=== PATIENT | male | born 1985 | race Hispanic/Latino ===

== ENCOUNTER 2017-01-07 14:13 | Inpatient (IN) | payer OTHER ==
[~2017-01-07] VITALS: Ht 188 cm; Wt 184.9 kg
[~2017-01-07 14:13] MED LIST: IBUP200C PO
[2017-01-07 14:30] VITALS: BP 157/104; PULSE 90; RESP 28; O2SAT 94
[2017-01-07] MEDS ORDERED: Albuterol 2.5 mg/3 mL Inhalation Solution NEB ONE (15:30)
[2017-01-07 15:42] VITALS: PULSE 97; RESP 22; O2SAT 95
--- NOTE | 2017-01-07 15:54 | ED.REPORT ---
HPI-Dyspnea / Wheezing Date of Service Jan 07, 2017 ED Provider: Gurinder Hoyt PA-C Evan is Serbian-speaking 31-year-old male who presents with a chief complaint of swollen neck glands. Review of records indicates that the patient was seen at [place] urgent [facility] 2 days ago for cold symptoms. At that time he complained of fatigue, fever, headache, nasal congestion, otalgia, postnasal drainage, sinus pressure and crusted eyelids in the morning. He complained as well as preauricular tenderness. he denied testicular or scrotal pain. He has been tested for mumps and results are pending. He was diagnosed with parotitis , aphthous ulcer of the mouth and acute conjunctivitis of both eyes. Since the emergency department because his preauricular pain is worsening. He also complains of these had to sleep in a chair for the last 2 nights because he becomes short of breath lying down and aggravates his pain. There is complaint of fever, chills, dizziness and headache. He also reports pain in his pannus when he coughs. Denies abdominal pain, vomiting, diarrhea, chest pain, palpitations. Admits smoking. Denies cocaine/methamphetamine, cardiac disease. Nursing Notes Stated Complaint: SWOLLEN NECK GLANDS Chief Complaint: Respiratory Complaints Nursing Notes Reviewed: Yes Allergies: Coded Allergies: No Known Allergies (Unverified , 01/07/17) Scheduled Lisinopril (Lisinopril) 20 Mg Tablet 20 MG PO DAILY Scheduled PRN Ibuprofen (Ibuprofen) 400 Mg Tablet 400 MG PO TIDWM PRN PRN For Pain General Time Seen by MD: 15:30 Chief Complaint Other (swollen neck glands) Past Medical History Past Medical History Reports: Hypertension, Denies: Asthma, Congestive heart failure, Coronary artery disease, Diabetes mellitus Past Surgical History knee surgery 04/22/2016 Smoking History Current Every Day Smoker, Light Tobacco Smoker Social History Alcohol Use: 1-3 per day Drug Use: Denies drug use Other Social History: Occupation lives with girfriend, works as a [employer] Ambulatory Status Independent Review of Systems General: Admits fever, chills, malaise. HEENT: Admits congestion, headache, sore throat. Respiratory: He admits dyspnea, cough, shortness of breath, wheezing. Cardiovascular: Denies chest pain, palpitations. Gastrointestinal: Denies vomiting, diarrhea, abdominal pain. Otherwise as noted in HPI. Physical Exam General: Mildly ill appearing, morbidly obese, mild distress. Head: Atraumatic, normocephalic. No mastoid tenderness. Eyes: Injected sclera. No discharge. PERRL. Vision grossly intact. Ears: Pinna and tragus nontender with manipulation. External auditory canal patent, atraumatic and without discharge. Tympanic membrane bonner, shiny and translucent without fluid, bulging, retraction or perforation. Hearing grossly intact. Nose: Symmetrical, nares patent without discharge. No frontal or maxillary sinus tenderness. Mouth/pharynx: Negative trismus normal dentition, mucus membranes moist. Tonsils 2+ and symmetrical, uvula midline. Pharynx injected, no cobblestoning or discharge. Voice clear. Neck: Tenderness and swelling around parotid glands and submandibular no lymphadenopathy or induration noted. Trachea midline. Respiratory: Regular rate and rhythm. Mild rhonchi in lower trivedi. No respiratory distress. Slightly increased work of breathing, speaks in complete sentences. Cardiovascular: Borderline tachycardia 100 bpm, regular rhythm, without murmur, gallop or rub. 1+ bilateral pedal edema noted.. Gastrointestinal: Obese abdomen non-tender without guarding or rebound. Bowel sounds normoactive. Extensive striae. Skin: Warm and dry. Neurological: Grossly nonfocal. Psychological: Alert and oriented. Speech appropriate, linear and logical. Behavior appropriate. Initial Vital Signs Vital Signs (First) Date Time Temp Pulse Resp B/P Pulse Ox O2 Delivery O2 Flow Rate FiO2 01/07/17 14:30 37.2 90 28 157/104 94 Room Air Initial VS: Reviewed, Vital signs normal Interpretation & Diagnostics Lab Results Interpretation Result Diagram: 01/07/17 1645 01/07/17 1645 Test 01/07/17 16:45 White Blood Count 10.6th/mm3 (3.8-10.1) Red Blood Count 5.27mil/mm3 (4.40-5.80) Hemoglobin 15.1g/dL (13.8-17.2) Hematocrit 46.8% (41.0-50.0) Mean Corpuscular Volume 88.8fL (81-100) Mean Corpuscular Hemoglobin 28.7pg (27.0-35.0) Mean Corpuscular Hemoglobin Concent 32.3% (32.0-37.0) Red Cell Distribution Width 15.1% (12.3-15.4) Platelet Count 252bil/L (150-400) Neutrophils (%) (Auto) 71.1% (40-74) Lymphocytes (%) (Auto) 14.8% (14-46) Monocytes (%) (Auto) 11.6% (4-12) Eosinophils (%) (Auto) 2.1% (0-5) Basophils (%) (Auto) 0.2% (0-3) Sodium Level 140mEq/L (134-144) Potassium Level 4.8mEq/L (3.5-5.2) Chloride Level 99mEq/L (97-108) Carbon Dioxide Level 25mmol/L (18-29) Blood Urea Nitrogen 6mg/dL (6-20) Creatinine 0.50mg/dL (0.76-1.27) Estimat Glomerular Filtration Rate 206mL/min (>59) Glucose Level 108mg/dL (60-99) Calcium Level 8.6mg/dL (8.5-10.1) Total Bilirubin 0.4mg/dL (0.0-1.2) Aspartate Amino Transf (AST/SGOT) 125U/L (0-50) Alanine Aminotransferase (ALT/SGPT) 86U/L (0-44) Alkaline Phosphatase 101U/L (25-150) Troponin T 0.020ug/L (0.0-0.011) Pro-B-Type Natriuretic Peptide 269.6pg/mL (0-86) Total Protein 7.9g/dL (6.4-8.4) Albumin 4.2g/dL (3.4-5.0) Hold Andino Top Tube Received (Received) ECG Interpretation ECG Interpretation: Sinus rhythm with a rate of 97, no axis deviation, left atrial enlargement. Slight ST elevation less than 1 box in aVR and depression in lead [address] Argueta. X-Ray Chest Interpretation Chest Xray Interpretation: PROCEDURE: X-RAY CHEST ONE VIEW, PORTABLE ([id number]) INDICATIONS: dyspnea IMPRESSION: Acute disease is seen in the Portable chest. Re-Eval/Medical Decision Med Decision/Clinical Course 31-year-old male diagnosed 3 days ago at urgent care with parotitis, conjunctivitis upper respiratory tract infection and concern for mumps presents for worsening symptoms in the emergency department. Complains of orthopnea, worsening parotid pain, worsening cough. Mumps test is pending. Triage nurse noted wheezing, and requested an albuterol nebulizer. this was administered prior to my seeing him though I did listen to his lungs before he received it. I heard wheezing as well as rhonchi before treatment, which is improved modestly after treatment. Patient reports improvement. Physical examination reveals a morbidly obese male with continued rhonchi, 1+ pitting edema which the patient states has been present since his knee surgery approximately one year ago, parotid tenderness. There is no induration in the submandibular region, tonsils are midline and symmetrical. There is no inspiratory stridor or drooling. He does appear to have slightly increased work of breathing. I ordered a CBC, CMP, BNP, and chest x-ray have concern of possible CHF development. These are unremarkable except for a very slightly elevated BNP. Subsequent EKG is abnormal and troponin is slightly elevated at 0.020. Dr. Argueta is concerned about viral myocarditis. I do not believe this is heart failure, STEMI, pneumonia, peritonsillar abscess, Daniel's angina or epiglottitis. I discussed the case with the hospitalist who accepts admission. Patient is amenable. Re-Evaluation/Progress : Time of Eval: 18:44 Re-Evaluation/Progress Note: Patient reports pain is significantly reduced. Slight rhonchi still present in all trivedi. Patient appears to be sitting comfortably and having a snack, though his breathing appears slightly labored. 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
[2017-01-07 17:02] LABS: BASOPHILS % (AUTO) 0.2 % (0-3); EOSINOPHILS % (AUTO) 2.1 % (0-5); MONOCYTES % (AUTO) 11.6 % (4-12); Mean Corpuscular Hemoglobin 28.7 pg (27.0-35.0); Mean Corpuscular Volume 88.8 fL (81-100); NEUTROPHILS % (AUTO) 71.1 % (40-74); Platelet Count 252 bil/L (150-400)
--- NOTE | 2017-01-07 17:28 | DRSVH ---
PROCEDURE: X-RAY CHEST ONE VIEW, PORTABLE ([id number]) INDICATIONS: dyspnea TECHNIQUE: One view of the chest was acquired. COMPARISON: [facility], CR, XR CHEST 2VW, 05/18/2016, 12:17. FINDINGS: Surgical changes and devices: None. Lungs and pleura: No pleural effusions or pneumothorax. Lungs are clear. Mediastinum: Mediastinal contours appear normal. Heart size is normal. Bones and chest wall: No suspicious bony lesions. Overlying soft tissues appear unremarkable. IMPRESSION: Acute disease is seen in the Portable chest. Dictated by: Bin Etienne M.D. on 01/07/2017 at 17:26 Approved by: Bin Etienne M.D. on 01/07/2017 at 17:27
[2017-01-07] MEDS ORDERED: Alum-Mag Hydrox-Simeth 30 mL Suspension PO PRN (21:00)
[2017-01-07] MEDS ORDERED: Polyethylene Glycol (PEG) 17 Gm Powder PO PRN (21:00)
[2017-01-07 21:35] VITALS: BP 195/107; PULSE 100; RESP 18; O2SAT 94
[2017-01-07] MEDS ORDERED: LISI-567 PO (21:37)
[2017-01-07] MEDS ORDERED: IBUP400T22 PO (21:37)
[2017-01-07 21:51] VITALS: BP 194/134; PULSE 104; RESP 25; O2SAT 95
[2017-01-07] MEDS ORDERED: hydrALAZINE 20 mg/mL Inj IV STA (23:28)
[2017-01-07] MEDS ORDERED: Furosemide 10 mg/mL 2 mL Inj IVPUSH ONE (23:30)
--- NOTE | 2017-01-07 23:38 | PCM.HPMED ---
Subjective Date of Service Jan 07, 2017 Primary Provider: Admitting Physician: Rachael aMres DO Primary Care Physician: [facility] Attending Physician: Rachael Mares DO Admit Status: From the Emergency Department Chief Complaint: Parotitis History of Present Illness: Patient is a pleasant 31-year-old gentleman history of hypertension presenting with the chief complaint of swollen neck glands and pain since Wednesday (3 days) additionally he has been having "cold symptoms" during this time. He was seen at the [place] urgent care 2 days ago with a head concern for mumps and swabs were taken and sent for analysis. He complains of fatigue, fever, headache, nasal congestion, otalgia, postnasal drip, sinus pressure, crusted eyelids this morning. He states the reason for coming into the ER was that his symptoms were continuing to get worse and more unbearable this morning. Additionally at the urgent care he was diagnosed with parotitis, this ulcer, and acute conjunctivitis of both eyes. He denies any recent travel, no tuberculosis contacts, no contact with anybody with similar symptoms, he has been having a cough, productive green and yellow for the last 3 days. He has bilateral lower extremity edema which he states there for a year, wax and wanes, and was only present after he suffered on-the- job injury requiring bilateral knee surgery. 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 He denies any chest pain, he does have some lightheadedness and dizziness that was worsening today, mild headache secondary to the pain in his parotids and sinus pressure, he denies any nasal drainage. No tinnitus. No nausea, vomiting, diarrhea. No numbness, tingling or weakness in his arms and her legs, however does endorse generally feeling weak. He describes having shortness of breath when laying down, as well as pain in his abdomen with cough. He has been taking Tylenol at home for pain relief which has not been helping. On presentation had a heart rate of 90, respiratory rate of 28, blood pressure 157/104. Temperature 37.2. White blood cells 10.6, remaining CBC unremarkable with normal differential Electrolytes normal, creatinine 0.5, BUN 6, glucose 108, AST and ALT 125 and 86 respectively, proBNP 269.6, troponin 0.02, lactic acid 1.6. EKG: Heart rate 97, sinus rhythm, normal axis, left atrial enlargement. Portable chest x-ray describes clear lungs, normal heart size. I question if there is a typo in the radiologist's impression "acute disease is seen in the portable chest." In the emergency department he received nebulizer treatments which improved his respiratory distress. Review of Systems: Comprehensive ROS negative unless stated in history of present illness Allergies Coded Allergies: No Known Allergies (Unverified , 01/07/17) Home Medications Lisinopril 20 mg daily by mouth PMH Hypertension Obesity Lower extremity edema Surgical History Bilateral knee repair March 2016 Family History Father is alive and well Mother is , unknown cause of Social History Occupation: [employer] Hx Alcohol Use: Yes Alcoholic Drinks Per Day: 4 beers per day Hx Substance Use: No Smoking Status: Current Every Day Smoker (4 cigarettes a day), Light Tobacco Smoker Living Arrangement: with Family Exam Vital Signs Vital Sign - Last Date Time Temp Pulse Resp B/P Pulse Ox O2 Delivery O2 Flow Rate FiO2 01/07/17 21:51 37.7 104 25 194/134 95 Room Air Exam General: Sitting at edge of bed, labored breathing, moderately uncomfortable. HEENT: Head is round and appears swollen. Eyes are red, conjunctiva pink, mucous membranes moist, bilateral TM are pearly white without air-fluid level or irritation. Tenderness over the parotid glands bilaterally, nontender maxillary, frontal, ethmoid sinuses. No pain around orbit. Extraocular muscles are intact. Ears no nystagmus. Tongue is midline, tonsils mildly enlarged, airways patent. Left middle turbinate is moderately to severely inflamed, naris are uniformly erythematous with white discharge. Transillumination negative. Hyperpigmentation of skin fold at base of neck. Cardiovascular: Regular rate and rhythm, no clicks murmurs rubs, peripheral pulses 2/4 equal bilaterally or JVD appreciated Pulmonary: Lung sounds are distant, unable to appreciate rales, rhonchi or wheezing. -Examined after breathing treatment Abdominal: Soft to palpation, bowel sounds present 4, no hepatosplenomegaly. Negative rebound. Extremities: Moderate to severe fear bilateral lower extremity edema up to the level of the knee, mild tenderness, no rashes redness or asymmetries. Neuro: Neurologically grossly intact, strength is equal bilaterally upper and lower extremities. MSK: Gait is normal, able to move extremities on their own volition, strength 5 out of 5 equal bilaterally to upper and lower extremities. Lab and Diagnostics Result Diagram: 01/07/17 1645 01/07/17 1645 X-Rays, CTs and MRIs See history of present illness 12-lead ECG The history of present illness Assessment & Plan 31-year-old gentleman with a 3 day worsening cough, congestion, and parotid gland pain, found to have elevated troponin, and previously concern for Mumps, currently stable, chief concern for viral myocarditis. #1 Acute Sepsis, present on admission, evaluation and treatment ongoing Patient has consistently elevated heart rate, greater than 90, respiratory rate consistently greater than 20. Presumed source to be upper respiratory tract. Chest x-ray unremarkable Lactic acid 1.6 Treatment as below #2 acutely Elevated troponin, present on admission, evaluation treatment ongoing Ruling out NSTEMI, concern for viral myocarditis, demand ischemia secondary to sepsis and tachycardia. EKG does not demonstrate any acute infarction or ischemia. JAVED score of 5 Base on telemetry Trend troponins Tight blood pressure control, as below Aspirin now If troponins remain elevated, will begin anticoagulation therapy with heparin, and continue antiplatelet. If echocardiogram is abnormal or suggestive of viral myocarditis cardiac MRI may be of additional diagnostic value. Cardiology consultation #3 Acute Parotitis, worsening, present on admission Concern is for mumps Place patient in contact and droplet precautions Await results from outpatient laboratory testing Pain relief oxycodone as needed.-Avoid acetaminophen due to elevated liver enzymes of unknown cause #4 Acute on chronic worsening Bilateral lower extremity edema, present on admission, evaluation and treatment ongoing Described orthopnea, shortness of breath, waxing and waning course, concern is for CHF, possibly secondary to [place], viral myocarditis as mentioned above. Echocardiogram to be performed Trial of 20 mg Lasix IV Keep legs elevated, #5 Acute Elevated liver enzymes, present on admission, AST 125, ALT 86. Patient stated he took Tylenol to help with pain that did not help. Consumes 4 drinks a day for several years. Hepatitis panel Abdominal pain at this time to suggest intrahepatic or biliary cause. No jaundice. Bilirubin 0.4 We will follow on CMP in the a.m. #6 Acute hypertensive urgency, present on admission, treatment initiated 157/104 presentation, elevated to 194/134 when was mentioned before, 205 systolic on last check. Given lower extremity edema, shortness of breath, troponin, concern for CHF IV Lasix 20 mg 5 mg hydroxyzine IV If he has benefited from diuresis, will continue to diurese. Continue home lisinopril 20 mg, consider increasing to 40 mg #7 Chronic worsening Morbid obesity, present on admission, treatment ongoing BMI 52.4 Hemoglobin A1c, lipid panel, TSH, Nutrition consult in house Pain Evaluation: Adequate Pain Control GI Prophylaxis: Not indicated VTE Prophylaxis: Sub-Q Heparin (Unfractionated) Resuscitation Status: CPR: Attempt Resuscitation Attending Statement The patient was seen and examined together with house staff on 01/08/2017 and I agree with the history, exam and plan as outlined in the note above. Declan Lui DO Jan 07, 2017 23:38 Rachael Mares DO Jan 08, 2017 03:23
[2017-01-08] VITALS (9 sets, daily range): BP systolic 140–165; BP diastolic 75–105; PULSE 74–97; RESP 18–23; O2SAT 91–97
[2017-01-08] MEDS: Heparin 5,000 Unit/mL Inj SUBQ SCH ×3 (00:12→17:24)
[2017-01-08] MEDS: Sodium Chloride LOK Flush 10 mL Syringe IVFLUSH SCH ×3 (00:40→15:30)
[2017-01-08 05:23] LABS: BASOPHILS % (AUTO) 0.2 % (0-3); EOSINOPHILS % (AUTO) 3.5 % (0-5); MONOCYTES % (AUTO) 8.9 % (4-12); Mean Corpuscular Hemoglobin 28.6 pg (27.0-35.0); Mean Corpuscular Volume 90.3 fL (81-100); NEUTROPHILS % (AUTO) 72.2 % (40-74); Platelet Count 228 bil/L (150-400)
[2017-01-08 05:59] LABS: TROPONIN T 0.023 ug/L (0.0-0.011)
--- NOTE | 2017-01-08 06:41 | NUR ---
Admit/GERI Pt arrived to [facility] RM 2018 @ 2230. Pt arrived from ED and was able to walk from gurney to bed with strong gait noted. Pt A&Ox3, Hypertensive (MD notified and orders given for 5mg hydralazine and 20mg Lasix), with SpO2 mid to high 90's. Pt placed on Telemetry, and SpO2 monitoring. Pt advised of hospital policies and procedures and orient to call light and room. Pt unhappy with blood draws as he is scared of needles, educated pt on the importance of blood draws and pt agreed to having them done. Pt found to have severe sleep apnea. RT notified and helped to educate pt on having apnea and discussed trial of CPAP machine with pt. Pt was found to have SpO2's in the 60's while sleeping with irregular heart rate. Pt was placed on 4L NC and continued to Desat. Pt then placed on 8L Oxymask and continued to desat into the 60's. Pt placed on CPAP 3x for short periods of 2-10 mins at the lowest setting and pt unable to tolerate the pressure stating " I feel like I am going to with that machine on! My head feels like it is going to explode!" Educated pt on the importance of the machine and pt still refused. Tele has been SR/T 70's to 110's.
--- NOTE | 2017-01-08 10:24 | PCM.PNMED ---
Subjective Date of Service Jan 08, 2017 Subjective Patient feels fatigued. He denies any chest pain. Does have a cough and some sore throat. Minimal rhinorrhea. A fair amount of pain around his glans at the jawline on both sides. He is fairly prominent parotid swelling. He also has some eye symptoms but no visual changes. No edema or orthopnea. Exam Vital Signs Vital Sign - Last Date Time Temp Pulse Resp B/P Pulse Ox O2 Delivery O2 Flow Rate FiO2 01/08/17 07:56 36.8 97 22 164/105 92 Room Air 01/08/17 04:00 8.00 01/08/17 03:13 30 Intake and Output 01/07/17 01/07/17 01/08/17 Cumulative From/Thru 15:00 23:00 07:00 01/07/17 14:30 - 01/08/17 05:08 Intake Total 1200 ml 1200 ml Output Total 1700 ml 1700 ml Balance -500 ml -500 ml Intake Oral 1200 ml 1200 ml Output Urine Total 1700 ml 1700 ml # Bowel Movements 0 0 Exam Morbidly obese. No distress, slightly muffled voice. Some evidence of conjunctivitis, bilateral both were read and injected sclera Oropharynx is unremarkable. Patient has swollen parotid glands bilaterally Neck is otherwise supple. Lungs are clear with normal effort. Heart is regular without murmur Abdomen is nontender. Extremities are free of edema. Skin is free of rash or lesions. IVs and Medications Medications Reviewed: Medications were reviewed in detail Lab and Diagnostics Result Diagram: 01/08/17 0450 01/08/17 0450 X-Rays, CTs and MRIs See history of present illness 12-lead ECG The history of present illness Assessment & Plan 31-year-old gentleman with a 3 day worsening cough, congestion, and parotid gland pain, found to have elevated troponin, and previously concern for Mumps, currently stable, chief concern for viral myocarditis. #1 Acute Sepsis, present on admission, evaluation and treatment ongoing Patient has consistently elevated heart rate, greater than 90, respiratory rate consistently greater than 20. Presumed source to be upper respiratory tract. Chest x-ray unremarkable Lactic acid 1.6 Treatment as below Will add a adult respiratory PCR as well as a month's immunoglobulin, IgM. #2 acutely Elevated troponin, present on admission, evaluation treatment ongoing Ruling out NSTEMI, concern for viral myocarditis, demand ischemia secondary to sepsis and tachycardia. EKG does not demonstrate any acute infarction or ischemia. JAVED score of 5 Base on telemetry Trend troponins Tight blood pressure control, as below Aspirin now If troponins remain elevated, will begin anticoagulation therapy with heparin, and continue antiplatelet. If echocardiogram is abnormal or suggestive of viral myocarditis cardiac MRI may be of additional diagnostic value. We will defer to cardiology consultation and trend troponins as well as obtain results of PCR studies and echocardiogram. #3 Acute Parotitis, worsening, present on admission Concern is for mumps Place patient in contact and droplet precautions Await results from outpatient laboratory testing Pain relief oxycodone as needed.-Avoid acetaminophen due to elevated liver enzymes of unknown cause Plan is as above. #4 Acute on chronic worsening Bilateral lower extremity edema, present on admission, evaluation and treatment ongoing Described orthopnea, shortness of breath, waxing and waning course, concern is for CHF, possibly secondary to [place], viral myocarditis as mentioned above. Echocardiogram to be performed Trial of 20 mg Lasix IV Keep legs elevated, Continue diuresis with Lasix 20 IV daily. #5 Acute Elevated liver enzymes, present on admission, AST 125, ALT 86. Patient stated he took Tylenol to help with pain that did not help. Consumes 4 drinks a day for several years. Hepatitis panel Abdominal pain at this time to suggest intrahepatic or biliary cause. No jaundice. Bilirubin 0.4 We will follow on CMP in the a.m. We will follow clinically. #6 Acute hypertensive urgency, present on admission, treatment initiated 157/104 presentation, elevated to 194/134 when was mentioned before, 205 systolic on last check. Given lower extremity edema, shortness of breath, troponin, concern for CHF IV Lasix 20 mg 5 mg hydroxyzine IV If he has benefited from diuresis, will continue to diurese. Continue home lisinopril 20 mg, consider increasing to 40 mg We will add hydrochlorothiazide to lisinopril at 20 mg. The patient appears to be a candidate for dual antihypertensive therapy. #7 Chronic worsening Morbid obesity, present on admission, treatment ongoing BMI 52.4 Hemoglobin A1c, lipid panel, TSH, Nutrition consult in house Pain Evaluation: Adequate Pain Control GI Prophylaxis: Not indicated VTE Prophylaxis: Sub-Q Heparin (Unfractionated) Resuscitation Status: CPR: Attempt Resuscitation Time spent 30 minutes Dariusz Nguyen MD Jan 08, 2017 10:24
--- NOTE | 2017-01-08 13:57 | DRSVH ---
[facility] [address] [place] [address] Echocardiogram Report Name: PENNY RAE Study Date: 01/08/2017 Height: 74 in Hospital Exam Location: [facility] Weight: 408 lb Gender: Male BSA: 2.9 m2 : 1985 Age: 31 yrs BP: 152/77 mmHg Reason For Study: Congestive Heart Failure Ordering Physician: Performed By: [facility] HOSPITALIST [facility] Interpretation Summary The study quality was technically difficult. The left ventricle is grossly normal size. There is moderate concentric left ventricular hypertrophy. The ejection fraction is estimated to be 60-65%. The right ventricle is moderately dilated. Right ventricular systolic function is moderately reduced. There is trace tricuspid regurgitation. Right ventricular systolic pressure is estimated to be 41 mmHg plus the clinically estimated CVP which cannot be estimated on this exam. The ascending aorta is mildly enlarged. Procedure: A two-dimensional transthoracic echocardiogram with color flow and Doppler was performed. The study quality was technically difficult. A contrast injection of Definity was performed to improve assessment of LV function. There is no prior echocardiogram noted for this patient. The heart rate ranged between 78-104 bpm during the study. Left Ventricle: The left ventricle is grossly normal size. There is moderate concentric left ventricular hypertrophy. The ejection fraction is estimated to be 60-65%. Regional wall motion abnormalities cannot be excluded due to limited visualization. The E/E'is normal. Right Ventricle: The right ventricle is moderately dilated. Right ventricular systolic function is moderately reduced. Atria: The left atrium is borderline dilated. The right atrium is borderline dilated. A prominent eustachian valve is noted. Mitral Valve: There is mild mitral annular calcification. There is no mitral regurgitation. Aortic Valve: The aortic valve opens well. The aortic valve is not well visualized. There is no aortic valve stenosis. No aortic regurgitation is present. Tricuspid Valve: There is trace tricuspid regurgitation. Right ventricular systolic pressure is estimated to be 41 mmHg plus the clinically estimated CVP which cannot be estimated on this exam. Pulmonic Valve: The pulmonic valve is not well visualized. Great Vessels: The aortic root is normal size. The ascending aorta is mildly enlarged. The inferior vena cava was not well visualized. Pericardium/ Pleura There is no pericardial effusion. There is no pleural effusion. MMode/2D Measurements & Calculations LVIDd: 5.0 cm LA dimension: 4.3 cm RA long axis Ao root diam LVIDs: 4.2 cm FS: 14.6 % LA A2 area: 24.7 cm RA area Aortic Jxn: 3.0 cm IVSd: 1.5 cm LA A4 area: 28.6 cm asc Aorta Diam LVPWd: 1.3 cm LA length (vol) : 28.4 cm RA vol Ao Arch Diam (Prox LA vol: 89.5 ml : 114.ml Trans): 3.0 cm LA vol index RA : 38.8 mm/ : 30.4 ml/m2 RVDd major : 8.0 cm LV main. diameter/BSA LV sys. diameter/BSA RVD1 (basal) RVD2 (mid): 5.3 cm (cm/m^2): 1.7 (cm/m^2): 1.4 Doppler Measurements & Calculations Ao V2 max MV P1/2t TR max nolan MV V2 mean : 173.1 cm/sec : 56.3 msec : 319.4 cm/sec : 70.6 cm/sec Ao max P.0 mmHg TR max PG MV mean PG Ao mean P.3 mmHg : 40.8 mmHg PA V2 max MV V2 VTI : 130.2 cm/sec : 22.7 cm PA mean PG PA Accel Time MV P1/2t max nolan Ao V2 mean PA V2 mean : 129.6 cm/sec : 84.1 cm/sec MVA(P1/2t): 3.9 cm2 Ao V2 VTI: 32.7 cm Reading Physician:CYRIL
--- NOTE | 2017-01-08 14:22 | NUR ---
NUTRITION ASSESSMENT Assess: 31 yo M w/ sepsis, elevated troponin, acute parotitis, bilateral lower extremity. Consult received for weight loss. Pt has had a 100 lbs wt gain over the last year and has been somewhat immobile d/t a work injury. Pt states that he has tried everything diet shin and it doesn't work. He would like to have bariatric surgery. He typically eats 1-2 meals per day. Pt did not seem interested in discussing diet, not making eye contact and looking at his phone multiple times throughout conversation. PMHx: HTN, Obesity, Lower extremity edema LABS: Cr 0.65, Glu 113, AST 97, ALT 63 MEDICATIONS: Reviewed DIET: Heart Healthy, PO 100% NUTRITION FOCUSED PHYSICAL ASSESSMENT: GI symptoms/stool: No BM recordedBraden: 22 Skin integrity: No issues noted Overall Appearance: Obese man sitting at the edge of his bed ANTHROPOMETRICS: Current Wt: 185.1 kg BMI: 52.4 kg/u2Oqfmz Wt: 185.1 kg IBW: 86.4 kgAdj BW: 111 kg Recent wt changes: 100 lbs wt gain x1 yr ESTIMATED NEEDS: BMI/Wt loss Calories: 4297-7623 kcal/d (25-30 kcal/kg/d Adj BW (-500)) Protein: 135-165 g/d (1.2-1.5 g/kg/d Adj BW) NUTRITION DIAGNOSIS: 1) Food-knowledge related deficit related to weight loss as evidenced by reported knowledge. INTERVENTION: 1) Educated pt on the impact of diet vs exercise on wt loss. Informed pt that most of weight loss is achieved through dietary changes. 2) Discussed bariatric surgery and that most surgeons typically require some wt loss and dietary changes prior to the procedure. 3) Encouraged pt to eat at least 3 meals per day but that eating every 2-4 hours was most ideal and that every meal has a lean source of protein. 4) Recommend pt keep a food journal to identify various food patterns or habits MONITOR/EVALUATE: Wt, PO intake, Labs, Nutrition status, POC. Will follow per moderate nutrition risk guidelines.
--- NOTE | 2017-01-08 15:34 | NUR ---
Lab update Called urgent clinic to get Mumps lab back, talked to KAYLEE So whom does the PAQ's for the MD's inbox. He states that the results would not be available for 5-7 days. He states that the patient had this test done 01/05 so we should not expect to see results until Wednesday or Wednesday, he put a note in the chart to fax the results to [facility] when he gets them.
--- NOTE | 2017-01-08 16:30 | NUR ---
Social Work: Screen D: Per EMR review, pt is a 31 year old male admitted for Elevated Troponin. Pt is [employer] insurance with no supplement. PCP Is through the [facility]. NOK is Dory Lopes. Advanced directives not completed- information provided to pt by [facility]. Readmit score not entered at this time. Pt lives in [place] in a mobile home with his family. He is I at baseline. Pt reports drinking 4 beers daily. Pt not currently on CIWA. [facility] met with pt at bedside to discuss possible CDP referral. Pt declined at this time and states his drinking is not problematic. CD assessment not completed with pt. A: Pt who is I at baseline. P: Anticipate pt to discharge home via POV once medically stable; [facility] to continue to follow. RENÉ Mcqueen
[2017-01-09] VITALS (11 sets, daily range): BP systolic 134–161; BP diastolic 73–92; PULSE 87–103; RESP 18–24; O2SAT 93–99
[2017-01-09] MEDS: Heparin 5,000 Unit/mL Inj SUBQ SCH ×3 (00:50→17:50)
[2017-01-09] MEDS: Sodium Chloride LOK Flush 10 mL Syringe IVFLUSH SCH ×3 (00:50→17:50)
[2017-01-09 02:08] LABS: Hepatitis A Antibody IgM Negative (Negative); Hepatitis B Core Antibody IgM Negative (Negative)
[2017-01-09] MEDS: Ondansetron 2 mg/mL 2 mL Inj IVPUSH PRN ×3 (05:46→23:00)
--- NOTE | 2017-01-09 06:15 | NUR ---
NOC PT has become increasingly anxious over night. HE is currently on 4l oxymask. HIs saturation decreases when he is sleeping, but comes right back up when he is awakened. HE refuses to wear a cpap, which is what he really needs. PT b/p has been hypertensive overnight, but not above normal prn hydralazine orders. HE is at times diaphoretic. THis am he was nauseous and was given zofran. Mild tremors are felt fingertip to fingertip. PT states that he drinks several beers everyday. HE keeps asking when he can go home. Hep panels came back negative and buccal swab neg. for mumps. We are still waiting for serology results. PT also c/o h/a this am. His CIWA is 12 currently. Oxycodone given twice for pain. Primary source is parotid. Will CTM and defer to day RN to continue monitoring.
--- NOTE | 2017-01-09 07:54 | PCM.PNMED ---
Subjective Date of Service Jan 09, 2017 Subjective He still has parotid gland swelling and fatigue. No fevers. Minimal pain. He has a cough, nonproductive. Some dyspnea and persistent hypoxia. His room air sats remaining 88-90 daily pending now much he is ventilating. No nausea or diarrhea. No skin rash. Exam Vital Signs Vital Sign - Last Date Time Temp Pulse Resp B/P Pulse Ox O2 Delivery O2 Flow Rate FiO2 01/09/17 06:10 87 22 150/92 93 OxyMask 3.00 01/09/17 02:55 36.9 95 Intake and Output 01/08/17 01/08/17 01/09/17 Cumulative From/Thru 15:00 23:00 07:00 01/07/17 14:30 - 01/09/17 06:40 Intake Total 1883 ml 3083 ml Output Total 2700 ml 1 ml 4401 ml Balance -817 ml -1 ml -1318 ml Intake Oral 1883 ml 3083 ml Output Urine Total 2700 ml 4400 ml Urine/Stool Mix 1 ml 1 ml # Voids 2 2 # Bowel Movements 1 1 Exam Alert and oriented 3, no distress. Fluent speech Anicteric sclera Swollen parotid glands Neck is otherwise supple. Lungs are clear with minimal wheezing. Heart is regular without murmur gallop or rub. Abdomen is distended but nontender. Extremities 1+ edema bilaterally which is chronic. Skin is free of rash or lesions IVs and Medications Medications Reviewed: Medications were reviewed in detail Lab and Diagnostics Result Diagram: 01/08/17 0450 01/08/17 0450 X-Rays, CTs and MRIs See history of present illness 12-lead ECG The history of present illness Assessment & Plan 31-year-old gentleman with a 3 day worsening cough, congestion, and parotid gland pain, found to have elevated troponin, and previously concern for Mumps, currently stable, chief concern for viral myocarditis. #1 Acute Sepsis, present on admission, evaluation and treatment ongoing Patient has consistently elevated heart rate, greater than 90, respiratory rate consistently greater than 20. Presumed source to be upper respiratory tract. Chest x-ray unremarkable Lactic acid 1.6 Treatment as below Will add a adult respiratory PCR as well as a month's immunoglobulin, IgM. We will continue fluid resuscitation no other changes. We have a negative hepatitis C and negative blood cultures. Negative adult respiratory PCR panel. #2 acutely Elevated troponin, present on admission, evaluation treatment ongoing Ruling out NSTEMI, concern for viral myocarditis, demand ischemia secondary to sepsis and tachycardia. EKG does not demonstrate any acute infarction or ischemia. JAVED score of 5 Base on telemetry Trend troponins Tight blood pressure control, as below Aspirin now We will repeat troponin today to see if this is trending down. ECG and echo are unremarkable. The possibility of viral myocarditis remains. #3 Acute Parotitis, worsening, present on admission Concern is for mumps Place patient in contact and droplet precautions Await results from outpatient laboratory testing Pain relief oxycodone as needed.-Avoid acetaminophen due to elevated liver enzymes of unknown cause Plan is as above. #4 Acute on chronic worsening Bilateral lower extremity edema, present on admission, evaluation and treatment ongoing Described orthopnea, shortness of breath, waxing and waning course, concern is for CHF, possibly secondary to NV, viral myocarditis as mentioned above. Echocardiogram to be performed Trial of 20 mg Lasix IV Keep legs elevated, Continue diuresis with Lasix 20 IV daily. #5 Acute Elevated liver enzymes, present on admission, AST 125, ALT 86. Patient stated he took Tylenol to help with pain that did not help. Consumes 4 drinks a day for several years. Hepatitis panel Abdominal pain at this time to suggest intrahepatic or biliary cause. No jaundice. Bilirubin 0.4 We will follow on CMP in the a.m. We will follow clinically. #6 Acute hypertensive urgency, present on admission, treatment initiated 157/104 presentation, elevated to 194/134 when was mentioned before, 205 systolic on last check. Given lower extremity edema, shortness of breath, troponin, concern for CHF IV Lasix 20 mg 5 mg hydroxyzine IV If he has benefited from diuresis, will continue to diurese. Continue home lisinopril 20 mg, consider increasing to 40 mg We will add hydrochlorothiazide to lisinopril will increase from 20 to 40. The patient appears to be a candidate for dual antihypertensive therapy. #7 Chronic worsening Morbid obesity, present on admission, treatment ongoing BMI 52.4 Hemoglobin A1c, lipid panel, TSH, Nutrition consult in house 8. Hypoxia. The patient may have mild reactive airways. He does smoke a couple cigarettes a day. His physical exam reveals minimal evidence of obstructive airways. The chest x-ray. Pain Evaluation: Adequate Pain Control GI Prophylaxis: Not indicated VTE Prophylaxis: Sub-Q Heparin (Unfractionated) Resuscitation Status: CPR: Attempt Resuscitation Time spent 30 minutes Dariusz Nguyen MD Jan 09, 2017 07:54
--- NOTE | 2017-01-09 09:39 | DRSVH ---
PROCEDURE: X-RAY CHEST ONE VIEW, PORTABLE ([id number]) INDICATIONS: dyspnea TECHNIQUE: One view of the chest was acquired. COMPARISON: [facility], CR, XR CHEST 1VW (PORTABLE), 01/07/2017, 16:53. FINDINGS: Surgical changes and devices: None. Lungs and pleura: No pleural effusions or pneumothorax. Lungs are clear. Mediastinum: Mediastinal contours appear normal. Heart size is normal. Bones and chest wall: No suspicious bony lesions. Overlying soft tissues appear unremarkable. IMPRESSION: No acute cardiopulmonary disease process. Dictated by: Danika Lancaster MD, PhD on 01/09/2017 at 9:36 Approved by: Danika Lancaster MD, PhD on 01/09/2017 at 9:37
[2017-01-09] MEDS ORDERED: Furosemide 10 mg/mL 4 mL Inj IVPUSH ONE (16:45)
--- NOTE | 2017-01-09 18:43 | NUR ---
SPO2/Nausea Cardiac: Pt denies CP, reports chronic edema since accident 2 years ago injuring both knees, Tele: SR 90-110. Resp: Pt reports mild SOB at times . SPo2 fluctuates greatly when pt sleeps 70s-90s. Pt has periods of apnea. Oxymask turned up to 10L when pt sleeping. Pt is very somnolent this AM after getting oxycodone for headache this AM. SPO2 mid to low 90s on 4L NC when awake. Pt desats when awake to upper 70s without mask. GI/: Pt reported some nausea late AM after breakfast. pt got up to EOB to use urinal and got very dizzy then vomited 500ml, Zofran given, no reports of nausea for rest of shift. indpendent to BR Neuro: A&Ox3, pt is anxious about cost of care and test results. 0.5mg ativan given this afternoon with good effect.
--- NOTE | 2017-01-09 23:54 | NUR ---
GERI/CPAP Refusal Pt having significant sleep apnea w/ SpO2 fluctuating down to 70s-90s while asleep. monitored continuously. Pt encouraged to try CPAP again but refuses, states he feels "like my head will explode, like the air goes in but does not come out." Risks of GERI explained. Pt also given GERI information in Urdu. Pt continues to refuse attempt to use CPAP. While awake SpO2 mid 90s on 8L oxymask. O2 turned up to 15L while pt sleeps to maximize oxygenation. No c/o chest pain. Addendum: 01/10/17 at 0136 by RAIZA PINEDA RN Pt still noted to desat to high 70s-80s while asleep, when woken sats come back up to normal limits. Pt informed that nursing will wake him if sats sustain below normal limits, pt voiced understanding. aware.
[2017-01-10] VITALS (7 sets, daily range): BP systolic 136–160; BP diastolic 80–104; PULSE 88–114; RESP 19–24; O2SAT 87–98
[2017-01-10] MEDS: Heparin 5,000 Unit/mL Inj SUBQ SCH ×2 (01:10→08:49)
[2017-01-10] MEDS: Sodium Chloride LOK Flush 10 mL Syringe IVFLUSH SCH ×2 (01:10→08:50)
--- NOTE | 2017-01-10 06:33 | NUR ---
Respiratory/Pain/Nausea Pt titrated down from 10L to 8L oxymask at start of shift and maintained sats in mid 90s. Once pt fell asleep he desat consistently down to 70s and occasionally high 60s, please see previous note. Pt turned up to 15L oxymask and remained there as he intermittently slept throughout the shift. Sats 97-100 if pt awake at this O2 flow. This morning pt woke for sometime and O2 was turned back down to 10L oxymask, sats 93-95. Pt also given oxycodone x1 for 04/03 headache at start of shift. Pt stated this was effective, however began to vomit less than an hour later. Pt stated this medication had this effect on him before. Pt given Zofran x1, he vomited once more but denied any further nausea. Addendum: 01/10/17 at 0712 by RAIZA PINEDA RN Pt occasionally pulls oxymask off in his sleep and noted to desat very quickly into 70s. Pt hardwired for SPo2 monitoring continuously.
[2017-01-10] MEDS: Ondansetron 2 mg/mL 2 mL Inj IVPUSH PRN ×2 (10:08→13:37)
--- NOTE | 2017-01-10 13:44 | DRSVH ---
PROCEDURE: CT ANGIO CHEST PULMONARY EMBOLISM ([id number]) INDICATIONS: 31-year-old male with dyspnea. TECHNIQUE: After the administration of intravenous contrast, 2 mm thick sections acquired from the pulmonary api stephanie to the posterior costophrenic angles. 3-dimensional maximum intensity projection (MIP) coronal a nd sagittal reformats were then acquired through the thorax. For radiation dose reduction, the follo wing was used: automated exposure control, adjustment of mA and/or kV according to patient size. COMPARISON: [facility], CR, XR CHEST 1VW (PORTABLE[facility]09[facility]2017[facility] 9:04[facility]ST [facility], 05/20/2016, 16:48. FINDINGS: Image quality: Excellent. Pulmonary arteries: Pulmonary arteries are normal in size, and demonstrate no intraluminal filling d efects to suggest central pulmonary embolism. Lungs and pleura: Lungs are clear. No pleural effusions or pneumothorax. Central and peripheral ai rways are patent. Mediastinum: Heart size is normal, without pericardial effusion. No mediastinal or hilar adenopathy . Thoracic aorta is normal in caliber and enhancement. Esophagus is normal in caliber, without hiat al hernia. Bones and chest wall: No suspicious bony lesions. Ribs and thoracic spine appear intact throughout. Thyroid gland is normal. No axillary or supraclavicular adenopathy. Abdomen: Visualized upper abdominal solid organs appear normal in the early arterial phase of enhanc ement. Diffuse hepatic fatty infiltration. IMPRESSION: 1. No evidence of acute central pulmonary embolism. 2. Clear lungs. 3. Hepatic steatosis. Dictated by: Zbigniew Jimenez M.D. on 01/10/2017 at 13:39 Approved by: Zbigniew Jimenez M.D. on 01/10/2017 at 13:42
--- NOTE | 2017-01-10 15:07 | NUR ---
Home Oxygen Eval Room air at rest 87% 2L oxy mask w/activity 81% 6L oxy mask w/activity 91%
--- NOTE | 2017-01-10 15:49 | PCM.DIMED ---
Discharge Instructions Date of Service Jan 10, 2017 Dates of Hospitalization Jan 07, 2017 at 20:48 Discharge Diagnosis Discharge Diagnosis 1. Acute Sepsis, Improved. 2. Metapneumovirus pneumonia , improved 3. Acute respiratory failure with hypoxia, slowly improving. 4. Probable obstructive sleep apnea, not improving. 5. Acute Elevated liver enzymes, improving 6. Hypertension, uncontrolled. Improved. 7. Morbid obesity, BMI 52.4 Diet Low fat, Low Sodium, Heart Healthy Activity Limited until seen by PCP Call your provider Fever or Chills, Shortness of breath, Chest pain Patient Instructions Patient is asked to make an appointment [facility] to see his doctor within the next week. Follow-up Provider: Melba Trujillo MD Follow-up with PCP in: 1 week Dariusz Nguyen MD Jan 10, 2017 15:49
[2017-01-10] MEDS ORDERED: ONDA4VIA27 IVPUSH (15:52)
[2017-01-10] MEDS ORDERED: HYDR25TA4 PO (15:52)
[2017-01-10] MEDS ORDERED: LISI-567 PO (15:52)
--- NOTE | 2017-01-10 15:59 | PCM.DC.MED ---
Discharge Summary Date of Service Jan 10, 2017 Dates of Hospitalization Date of Hospital Admission Jan 07, 2017 at 20:48 Date of Discharge: Jan 10, 2017 Providers: Admitting Physician: Rachael Mares DO Primary Care Physician: [facility] Attending Physician: Rachael Mares DO Diagnosis at Time of Discharge Diagnosis at Time of Discharge 1. Acute Sepsis, Improved. 2. Metapneumovirus pneumonia , improved 3. Acute respiratory failure with hypoxia, slowly improving. 4. Probable obstructive sleep apnea, not improving. 5. Acute Elevated liver enzymes, improving 6. Hypertension, uncontrolled. Improved. 7. Morbid obesity, BMI 52.4 Consultations None Procedures XRay, CTs & MRIs Chest x-ray was unremarkable. CT pulmonary angiogram negative for PE, pericardial effusion, infiltrate, pleural effusion. Positive for steatohepatitis. ECG 12 Lead The history of present illness Cardiac Echo Impression Interpretation Summary The study quality was technically difficult. The left ventricle is grossly normal size. There is moderate concentric left ventricular hypertrophy. The ejection fraction is estimated to be 60-65%. The right ventricle is moderately dilated. Right ventricular systolic function is moderately reduced. There is trace tricuspid regurgitation. Right ventricular systolic pressure is estimated to be 41 mmHg plus the clinically estimated CVP which cannot be estimated on this exam. The ascending aorta is mildly enlarged. Invasive Procedures None Brief History Patient is a pleasant 31-year-old gentleman history of hypertension presenting with the chief complaint of swollen neck glands and pain since Wednesday (3 days) additionally he has been having "cold symptoms" during this time. He was seen at the [place] urgent care 2 days ago with a head concern for mumps and swabs were taken and sent for analysis. He complains of fatigue, fever, headache, nasal congestion, otalgia, postnasal drip, sinus pressure, crusted eyelids this morning. He states the reason for coming into the ER was that his symptoms were continuing to get worse and more unbearable this morning. Additionally at the urgent care he was diagnosed with parotitis, this ulcer, and acute conjunctivitis of both eyes. He denies any recent travel, no tuberculosis contacts, no contact with anybody with similar symptoms, he has been having a cough, productive green and yellow for the last 3 days. He has bilateral lower extremity edema which he states there for a year, wax and wanes, and was only present after he suffered on-the- job injury requiring bilateral knee surgery. 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 He denies any chest pain, he does have some lightheadedness and dizziness that was worsening today, mild headache secondary to the pain in his parotids and sinus pressure, he denies any nasal drainage. No tinnitus. No nausea, vomiting, diarrhea. No numbness, tingling or weakness in his arms and her legs, however does endorse generally feeling weak. He describes having shortness of breath when laying down, as well as pain in his abdomen with cough. He has been taking Tylenol at home for pain relief which has not been helping. On presentation had a heart rate of 90, respiratory rate of 28, blood pressure 157/104. Temperature 37.2. White blood cells 10.6, remaining CBC unremarkable with normal differential Electrolytes normal, creatinine 0.5, BUN 6, glucose 108, AST and ALT 125 and 86 respectively, proBNP 269.6, troponin 0.02, lactic acid 1.6. EKG: Heart rate 97, sinus rhythm, normal axis, left atrial enlargement. Portable chest x-ray describes clear lungs, normal heart size. I question if there is a typo in the radiologist's impression "acute disease is seen in the portable chest." In the emergency department he received nebulizer treatments which improved his respiratory distress. Hospital Course 31-year-old gentleman with a 3 day worsening cough, congestion, and parotid gland pain, found to have elevated troponin, and previously concern for Mumps, currently stable, chief concern for viral myocarditis. #1 Acute Sepsis, present on admission, evaluation and treatment ongoing Patient has consistently elevated heart rate, greater than 90, respiratory rate consistently greater than 20. Presumed source to be upper respiratory tract. Chest x-ray unremarkable Lactic acid 1.6 Treatment as below Will add a adult respiratory PCR as well as a month's immunoglobulin, IgM. We will continue fluid resuscitation no other changes. We have a negative hepatitis C and negative blood cultures. Negative adult respiratory PCR panel. #2 acutely Elevated troponin, present on admission, evaluation treatment ongoing Ruling out NSTEMI, concern for viral myocarditis, demand ischemia secondary to sepsis and tachycardia. EKG does not demonstrate any acute infarction or ischemia. JAVED score of 5 Base on telemetry Trend troponins Tight blood pressure control, as below Aspirin now We will repeat troponin today to see if this is trending down. ECG and echo are unremarkable. The possibility of viral myocarditis remains. #3 Acute Parotitis, worsening, present on admission Concern is for mumps Place patient in contact and droplet precautions Await results from outpatient laboratory testing Pain relief oxycodone as needed.-Avoid acetaminophen due to elevated liver enzymes of unknown cause Plan is as above. #4 Acute on chronic worsening Bilateral lower extremity edema, present on admission, evaluation and treatment ongoing Described orthopnea, shortness of breath, waxing and waning course, concern is for CHF, possibly secondary to DE, viral myocarditis as mentioned above. Echocardiogram to be performed Trial of 20 mg Lasix IV Keep legs elevated, Continue diuresis with Lasix 20 IV daily. #5 Acute Elevated liver enzymes, present on admission, AST 125, ALT 86. Patient stated he took Tylenol to help with pain that did not help. Consumes 4 drinks a day for several years. Hepatitis panel Abdominal pain at this time to suggest intrahepatic or biliary cause. No jaundice. Bilirubin 0.4 We will follow on CMP in the a.m. We will follow clinically. #6 Acute hypertensive urgency, present on admission, treatment initiated 157/104 presentation, elevated to 194/134 when was mentioned before, 205 systolic on last check. Given lower extremity edema, shortness of breath, troponin, concern for CHF IV Lasix 20 mg 5 mg hydroxyzine IV If he has benefited from diuresis, will continue to diurese. Continue home lisinopril 20 mg, consider increasing to 40 mg We will add hydrochlorothiazide to lisinopril will increase from 20 to 40. The patient appears to be a candidate for dual antihypertensive therapy. #7 Chronic worsening Morbid obesity, present on admission, treatment ongoing BMI 52.4 Hemoglobin A1c, lipid panel, TSH, Nutrition consult in house 8. Hypoxia. The patient may have mild reactive airways. He does smoke a couple cigarettes a day. His physical exam reveals minimal evidence of obstructive airways. The chest x-ray. Hospital course. This patient presented to urgent care with upper respiratory symptoms and hypoxia. He was transferred here for further evaluation. There was parotid gland fullness and concern for months. His mumps serology a day later came back negative. The patient had initially a normal chest x-ray. He did have morbid obesity as well as evidence of probable undiagnosed obstructive sleep apnea with frequent desaturations in the hospital while falling asleep. In addition the patient had evidence of acute respiratory failure with hypoxia. In fact had saturations in the low 90s to high 80s at rest on room air and desaturated further with exertion. This qualifies him for home oxygen at the time of discharge. The patient is very adamant about getting out of the hospital as quickly as possible from the second day forward. His initial respiratory PCR is negative however because of his prominent URI symptoms a second PCR was obtained which was positive for metapneumovirus. The patient also had mild elevations of troponins but for normal 2-D echocardiogram. He had no other indication of cardiac difficulty. Results of these troponins were a manifestation of acute viral illness. On the day of discharge his CT angiomas obtained to rule out PE given his mild troponin elevations and profound hypoxia. This was negative for PE, pulmonary infiltrate, pneumothorax , pleural or pericardial effusion. A long discussion with translation services and significant other was held for about 30 minutes answering all questions. There is an emphasis on the fact that he is still very ill with hypoxia despite his desire to go home. His probable obstructive sleep apnea which requires ongoing workup will continue to make the situation more difficult. The Patient Did Have a BiPAP on the Initial Portion of His Hospitalization but Did Not Tolerate This so This Will Be an Ongoing Struggle As Well. The Patient's Significant Other Was Quite Concerned about His Ongoing Alcohol Abuse Having for [employer] Nightly and How This May Affect His Health and This Was Also Discouraged. Exam Vital Signs (Last) Date Time Temp Pulse Resp B/P Pulse Ox O2 Delivery O2 Flow Rate FiO2 01/10/17 09:54 89 01/10/17 08:50 Supplement Oxygen 01/10/17 08:44 36.9 24 157/87 87 01/10/17 05:57 10.00 01/09/17 02:55 95 Exam Patient is seen and examined on the day of discharge Test 01/07/17 16:45 01/07/17 21:08 01/07/17 22:00 01/07/17 22:39 Pro-B-Type Natriuretic Peptide 269.6pg/mL (0-86) Hold Andino Top Tube Received (Received) Lactic Acid Level 1.6mmol/L (0.4-2.0) Hold Urine Received (Received) Hemoglobin A1c 6.4% (4.8-5.6) Thyroid Stimulating Hormone (TSH) 3.100uIU/mL (0.450-4.500) Acetaminophen Level < 15.0ug/mL Rx (10-25) Test 01/08/17 04:50 01/08/17 12:15 01/09/17 17:15 White Blood Count 10.0th/mm3 (3.8-10.1) Red Blood Count 5.03mil/mm3 (4.40-5.80) Hemoglobin 14.4g/dL (13.8-17.2) Hematocrit 45.4% (41.0-50.0) Mean Corpuscular Volume 90.3fL (81-100) Mean Corpuscular Hemoglobin 28.6pg (27.0-35.0) Mean Corpuscular Hemoglobin Concent 31.7% (32.0-37.0) Red Cell Distribution Width 15.2% (12.3-15.4) Platelet Count 228bil/L (150-400) Neutrophils (%) (Auto) 72.2% (40-74) Lymphocytes (%) (Auto) 15.0% (14-46) Monocytes (%) (Auto) 8.9% (4-12) Eosinophils (%) (Auto) 3.5% (0-5) Basophils (%) (Auto) 0.2% (0-3) Sodium Level 138mEq/L (134-144) Potassium Level 4.4mEq/L (3.5-5.2) Chloride Level 98mEq/L (97-108) Carbon Dioxide Level 25mmol/L (18-29) Blood Urea Nitrogen 12mg/dL (6-20) Creatinine 0.65mg/dL (0.76-1.27) Estimat Glomerular Filtration Rate 152mL/min (>59) Glucose Level 113mg/dL (60-99) Calcium Level 8.7mg/dL (8.5-10.1) Total Bilirubin 0.5mg/dL (0.0-1.2) Aspartate Amino Transf (AST/SGOT) 97U/L (0-50) Alanine Aminotransferase (ALT/SGPT) 67U/L (0-44) Alkaline Phosphatase 95U/L (25-150) Total Protein 7.2g/dL (6.4-8.4) Albumin 3.7g/dL (3.4-5.0) Hepatitis A IgM Antibody Negative (Negative) Hepatitis B Surface Antigen Negative (Negative) Hepatitis B Core IgM Antibody Negative (Negative) Hepatitis C Antibody 0.1s/co ratio (0.0-0.9) Hepatitis C Comment Comment (.) Troponin T 0.017ug/L (0.0-0.011) Monoscreen Negative (Negative) Discharge Medications Discharge Medications Hydrochlorothiazide (Hydrochlorothiazide) 25 Mg Tablet 25 MG PO DAILY Prescribed by: DARIUSZ SETHI MD Lisinopril (Lisinopril) 20 Mg Tablet 40 MG PO DAILY Prescribed by: DARIUSZ SETHI MD As needed Ibuprofen (Ibuprofen) 400 Mg Tablet 400 MG PO TIDWM PRN PRN For Pain (Reported) Ondansetron PF (Ondansetron PF) 4 Mg/2 Ml Vial 4-8 MG IVPUSH Q4H PRN PRN For Nausea/Vomiting Prescribed by: DARIUSZ SETHI MD Followup Plan Disposition: Home Discharge Diet: Low fat, Low Sodium, Heart Healthy Discharge Activity: Limited until seen by PCP Patient Instructions Patient is asked to make an appointment [facility] to see his doctor within the next week. Follow-up Provider: Melba Trujillo MD Follow-up with PCP in: 1 week Time spent 60 minute Dariusz Sethi MD Jan 10, 2017 15:59
--- NOTE | 2017-01-10 17:32 | NUR ---
Discharge note Patient a/o x 3, lao speaking but does speak some andorran. Discharge instructions given per MD using interpretor. Patient given discharge instructions printed in lao, med rec, prescriptions and note for work. All questions answered. IV SL and tele removed intact. Oxygen teaching done per RTC. Patient taken to car with all belongings and O2 tank via wheelchair and discharged home with . Radha RTC will call o2 company to deliver tanks to pt home.
== END 2017-01-10 17:06 | disposition home or self-care (01) | DRG 189 ==
LOC: SED 14:13 → PCC 20:48
PROVIDERS: ADMIT Internal Medicine; ATTEND Internal Medicine
DX: J96.01 Acute respiratory failure with hypoxia (principal); J12.3 Human metapneumovirus pneumonia; Z68.43 Body mass index [BMI] 50.0-59.9, adult; I24.8 Other forms of acute ischemic heart disease; I16.0 Hypertensive urgency; F17.200 Nicotine dependence, unspecified, uncomplicated; E66.01 Morbid (severe) obesity due to excess calories; G47.33 Obstructive sleep apnea (adult) (pediatric)

== ENCOUNTER 2017-05-04 13:40 | Inpatient (IN) | payer OTHER ==
[~2017-05-04] VITALS: Ht 188 cm; Wt 192.0 kg
[~2017-05-04 13:40] MED LIST changes: +HYDR25TA4 PO; -IBUP200C PO; +IBUP400T22 PO; +LISI-567 PO; +ONDA4VIA27 IVPUSH
[2017-05-04 13:44] VITALS: BP 171/120; PULSE 80; RESP 20; O2SAT 96
--- NOTE | 2017-05-04 14:58 | ED.REPORT ---
HPI-General Illness Date of Service May 04, 2017 ED Provider: Amador Ch MD The patient is a 32 year old male with history of morbid obesity, hypertension and diabetes mellitus, who presents to the emergency department complaining of shortness of breath that has been worsening over the last month. He has also noticed bilateral lower extremity swelling, fatigue, and lightheadedness. He denies chest pain, palpitations, cough, fever or chills. He was recently started on medications for his diabetes and blood pressure. Nursing Notes Stated Complaint: LOW OXYGEN AND BILATERAL KNEE PAIN Chief Complaint: Respiratory Complaints Nursing Notes Reviewed: Yes Allergies: Coded Allergies: No Known Allergies (Unverified , 05/04/17) Scheduled Furosemide (Furosemide) 20 Mg Tab 20 MG PO DAILY Hydrochlorothiazide (Hydrochlorothiazide) 25 Mg Tablet 25 MG PO DAILY Metformin (Metformin) 500 Mg Tablet 500 MG PO BID General Time Seen by MD: 14:57 Chief Complaint Other (shortness of breath) Hx Obtained From: Patient, Spouse Arrived By: Walk-in Sudden in Onset?: No Onset Occurred: More than a week ago... Symptom Duration: Since onset Severity: Current: Severe Severity: Maximum: Moderate Recent Healthcare: No recent doctor visit, No recent hospitalization Similar Sx Previous: No Past Medical History Past Medical History Reports: Diabetes mellitus, Hypertension Past Surgical History knee surgery 04/22/2016 Family History Noncontributory Smoking History Current Every Day Smoker, Light Tobacco Smoker Social History Alcohol Use: 1-3 per day Drug Use: Denies drug use Other Social History: , Local resident Occupation lives with girfriend, works as a [employer] Ambulatory Status Independent Review of Systems Full Review of Systems Constitutional: Reports: Fatigue, Denies: Chills, Fever Respiratory: Reports: Shortness of breath Cardiovascular: Reports: Edema, Denies: Chest pain, Palpitations Musculoskeletal: Reports: Extremity swelling Neurologic: Reports: Lightheaded Complete sys rev & neg: except as marked. Physical Exam Vital Signs Vital Signs Date Time Temp Pulse Resp B/P Pulse Ox O2 Delivery O2 Flow Rate FiO2 05/04/17 16:15 75 21 121/91 98 Nasal Cannula 2 05/04/17 13:44 36.2 80 20 171/120 96 Room Air Initial VS: Reviewed Head / Eyes: Atraumatic, Normocephalic, PERRL ENT: Mucous membranes moist, Conjunctiva normal, No scleral icterus Neck: Supple, Non-tender, Full range of motion Abdomen / GI: Soft, Non-tender, No guarding, No rebound, No distention Lymphatic: No lymphadenopathy Extremities: Vascular intact, Neuro intact Skin: Warm, Dry, No cyanosis Neurologic: Alert, Oriented, Nonfocal Psychiatric: Mood/affect normal, Behavior normal, Normal thought content General/Constitutional: Awake, Alert, Cooperative Appearance / Presentation: Positive: Obese, morbidly Respiratory / Chest: Breath sounds NL, Breath sounds = bilat, No respiratory distress 97 % on 2 L by nasal cannula. Cardiovascular: Heart rate NL, Heart sounds NL, No gallop, No murmurs, No rubs , Cap refill not delayed, Peripheral circulation NL, Pulses = bilaterally, No gross BP differential Heart Rate / Rhythm: Positive: Irregular rhythm Lower Ext Edema: Positive: Ankle, Bilateral 2+, Knee, Pitting Interpretation & Diagnostics Lab Results Interpretation Result Diagram: 05/05/17 0410 05/05/17 0410 Test 05/04/17 15:59 Hemoglobin A1c 6.6% (4.8-5.6) Magnesium Level 2.1mg/dL (1.6-2.6) Pro-B-Type Natriuretic Peptide 572.4pg/mL (0-86) ECG Interpretation ECG Interpretation: Atrial flutter with a rate of 72 bpm Normal axis Normal intervals No ST segment elevation No acute T wave abnormalities No prior available for comparison Time: 15:01 Interpreted by: ED physician X-Ray Chest Interpretation Chest Xray Interpretation: IMPRESSION: Cardiomegaly, without acute cardiopulmonary disease. Dictated by: Tom Driscoll M.D. on 05/04/2017 at 15:00 Interpretation / Wet Read by: Interpret - Radiologist Re-Eval/Medical Decision Med Decision/Clinical Course The patient is a 32 year old male with history of morbid obesity, hypertension and diabetes mellitus, who presents to the emergency department complaining of shortness of breath that has been worsening over the last month. He has also noticed bilateral lower extremity swelling, fatigue, and lightheadedness. He denies chest pain, palpitations, cough, fever or chills. He was recently started on medications for his diabetes and blood pressure. Here in the emergency department the patient appears slightly uncomfortable, he is morbidly obese though in no apparent distress. Vital signs were obtained as documented above. EKG was obtained and interpreted by myself as documented above. Of note, he is in new onset atrial flutter though rate controlled. LABS: CBC unremarkable, CMP unremarkable except for mild elevated transaminases , troponin negative. CXR: Cardiomegaly, without acute cardiopulmonary disease. Cause of patient's new onset atrial flutter unclear. Though he is relatively young he is morbidly obese with diabetes and hypertension. I suspect that this is likely the inciting factor for his atrial flutter. I see no evidence of acute coronary syndrome though in observing the patient he appears to have some degree of obesity hypoventilation/sleep apnea. This may also be contributing to his arrhythmia. Given that he is quite symptomatic and feel that he requires admission for further workup. Patient was discussed with admitting hospitalist accepted for further management. Source of Hx: Old records Time of Eval: 16:23 Re-Evaluation/Progress Note: Discussed plan for workup and admission. All questions were addressed. Consultation #1: Referral / Consult Name: Sarah Godinez DO Consulted With: Hospitalist Call Returned at: 17:00 Rail Operations Controller: Will see patient, Agrees with eval, Agrees with plan, Accepts admit Consultation #2: Referral / Consult Name: Junito Lacey MD Consulted With: Cardiology Call Returned at: 17:12 Rail Operations Controller: Agrees with eval, Agrees with plan Note: Will consult. Counseled Regarding: Diagnosis, Lab results, Need for admission Discharge & Departure Primary Impression: Atrial flutter by electrocardiogram Additional Impressions: Shortness of breath Lower extremity edema Laterality: bilateral Qualified Code: R60.0 - Localized edema Morbid obesity Obesity type: unspecified obesity type Qualified Code: E66.01 - Morbid ( severe) obesity due to excess calories Type II diabetes mellitus Diabetes mellitus complication status: with unspecified complications Diabetes mellitus senior living insulin use: unspecified emt intermediate insulin use status Qualified Code: E11.8 - Type 2 diabetes mellitus with unspecified complications Hypertension Hypertension type: unspecified secondary hypertension Qualified Code: I15.9 - Secondary hypertension, unspecified Disposition: ADMITTED TO HOSPITAL Discharge Condition All VS Reviewed: Yes Condition: Stable Referrals: [facility] GOMEZ (PCP) Scribe Attestation Portions of this note were transcribed by Yulissa Walker. I, Dr. Ch personally performed the history, physical exam and medical decision-making; I reviewed and confirmed the accuracy of the information in the transcribed note. Signed by: Jonnathan Gage, 05/04/2017 at 1800. copies to: [facility] GOMEZ Beck O MD May 04, 2017 14:58 Yulissa Walker May 04, 2017 15:18 Atrial flutter with a rate of 72 bpm Normal axis Normal intervals No ST segment elevation No acute T wave abnormalities No prior available for comparison Time: 15:01 Interpreted by: ED physician X-Ray Chest Interpretation Chest Xray Interpretation: IMPRESSION: Cardiomegaly, without acute cardiopulmonary disease. Dictated by: Tom Driscoll M.D. on 05/04/2017 at 15:00 Interpretation / Wet Read by: Interpret - Radiologist Re-Eval/Medical Decision Med Decision/Clinical Course LABS: CBC unremarkable, CMP unremarkable except for mild elevated transaminases , troponin negative CXR: Cardiomegaly, without acute cardiopulmonary disease. Source of Hx: Old records Time of Eval: 16:23 Re-Evaluation/Progress Note: Discussed plan for workup and admission. All questions were addressed. Consultation #1: Referral / Consult Name: Sarah Godinez DO Consulted With: Hospitalist Call Returned at: 17:00 Rail Operations Controller: Will see patient, Agrees with eval, Agrees with plan, Accepts admit Consultation #2: Referral / Consult Name: Junito Lacey MD Consulted With: Cardiology Call Returned at: 17:12 Rail Operations Controller: Agrees with eval, Agrees with plan Note: Will consult. Counseled Regarding: Diagnosis, Lab results, Need for admission Discharge & Departure Primary Impression: Atrial flutter by electrocardiogram Additional Impressions: Lower extremity cellulitis Laterality: unspecified laterality Qualified Code: L03.119 - Cellulitis of unspecified part of limb Shortness of breath Disposition: ADMITTED TO HOSPITAL Discharge Condition All VS Reviewed: Yes Condition: Stable Referrals: [facility]ANCO GOMEZ (PCP) Jonnathan Attestation Portions of this note were transcribed by Yulissa Walker. I, Dr. Ch personally performed the history, physical exam and medical decision-making; I reviewed and confirmed the accuracy of the information in the transcribed note. Signed by: Jonnathan Gage, 05/04/2017 at 1800. copies to: [facility] Beck O MD May 04, 2017 14:58 Yulissa Walker May 04, 2017 15:18
[2017-05-04 16:02] LABS: BASOPHILS % (AUTO) 0.2 % (0-3); EOSINOPHILS % (AUTO) 5.9 % (0-5); MONOCYTES % (AUTO) 11.7 % (4-12); Mean Corpuscular Hemoglobin 28.1 pg (27.0-35.0); Mean Corpuscular Volume 87.7 fL (81-100); NEUTROPHILS % (AUTO) 68.4 % (40-74); Platelet Count 247 bil/L (150-400)
--- NOTE | 2017-05-04 16:02 | DRSVH ---
PROCEDURE: X-RAY CHEST ONE VIEW, PORTABLE ([id number]) INDICATIONS: 32 year-old male with shortness of breath. TECHNIQUE: One view of the chest was acquired. COMPARISON: [facility], CR, XR CHEST 1VW (PORTABLE), 01/09/2017, 9:04. [facility], CR, XR CHEST 1VW (PORTABLE), 01/07/2017, 16:53. [facility], CR, XR CHEST 2VW, 04/25, 12:17. FINDINGS: Surgical changes and devices: None. Lungs and pleura: No pleural effusions or pneumothorax. Lungs are clear. Lung volumes are decrease d. Mediastinum: Mediastinal contours appear normal. Cardiomegaly is unchanged. Bones and chest wall: No suspicious bony lesions. Overlying soft tissues appear unremarkable. IMPRESSION: Cardiomegaly, without acute cardiopulmonary disease. Dictated by: Tom Driscoll M.D. on 05/04/2017 at 15:00 Approved by: Tom Driscoll M.D. on 05/04/2017 at 15:01
[2017-05-04 16:15] VITALS: BP 121/91; PULSE 75; RESP 21; O2SAT 98
[2017-05-04 16:26] LABS: TROPONIN T < 0.010 ug/L (0.0-0.011)
[2017-05-04 16:36] LABS: Magnesium 2.1 mg/dL (1.6-2.6)
[2017-05-04] MEDS ORDERED: Ondansetron 2 mg/mL 2 mL Inj IVPUSH PRN (17:10)
[2017-05-04] MEDS ORDERED: Glucose 40% Oral Gel 15 Gm Tube PO PRN (17:10)
[2017-05-04] MEDS ORDERED: Polyethylene Glycol (PEG) 17 Gm Powder PO PRN (17:10)
[2017-05-04] MEDS ORDERED: Alum-Mag Hydrox-Simeth 30 mL Suspension PO PRN (17:10)
[2017-05-04] MEDS: Insulin LISPRO 300 Unit/3 mL Inj SUBQ SCH ×2 (17:30→22:00)
[2017-05-04] MEDS ORDERED: METF500T4 PO (17:32)
[2017-05-04] MEDS ORDERED: FUR20 PO (17:32)
--- NOTE | 2017-05-04 17:57 | NUR ---
home med list called and notified Dr. Godinez that med list updated and that patient no longer takes lisinopril per patient and family report and that patient now takes furosemide and metformin. Dr. Godinez states understanding.
[2017-05-04 19:34] VITALS: BP 138/80; PULSE 62; RESP 22; O2SAT 92
[2017-05-04 19:50] VITALS: PULSE 84
[2017-05-04] MEDS ORDERED: Furosemide 10 mg/mL 4 mL Inj IVPUSH ONE ×2 (20:50)
--- NOTE | 2017-05-04 21:04 | ABG ---
DateTimeAnalyzed 20:56:51 -_ pH ____7.420 - 7.350 7.450 pCO2 ___52.9__ -mmHg 35.0 45.0 pO2 ___80.9__ -mmHg 70.0 100 HCO3- ___34.3__ -mmol/L 22.0 26.0 ABE ____8.8__ -mmol/L -2.0 2.0 tHb ___13.6__ -g/dL 12.0 18.0 O2Hb ___95.2__ -% 95.0 COHb ____1.5__ -% 1.5 MetHb ____0.0__ -% 0.4 1.5 sO2 ___96.5__ -% 25.0 FIO2 ___21.0__ -% Drawn By MD - Date/Time Notified____ 21:03:00 -_ Liter_Flow ____2.00_ -L/min Oxygen Device 1 __CANNULA - Notified By MD - Notified Whom DR JEWELL - K+ ____4.1__ -mmol/L tO2 ___18.3__ -Vol% Dariusz test N/A -
[2017-05-04 22:15] LABS: APPEARANCE,URINE CLEAR (CLEAR,HAZY); COLOR,URINE STRAW (YELLOW); OCCULT BLOOD,URINE NEGATIVE (NEGATIVE); PH,URINE 6.5 (5.0-8.0); UROBILINOGEN,URINE NORMAL (NORMAL)
--- NOTE | 2017-05-04 22:25 | PCM.HPMED ---
Subjective Date of Service May 04, 2017 Primary Provider: Admitting Physician: Primary Care Physician: Lindsey Khanna-Nat Hawthorne Attending Physician: Admit Status: From the Emergency Department Chief Complaint: Malaise, leg pain, leg edema, the back pain History of Present Illness: This is a 32-year-old Romansh-speaking male with past medical history of morbid obesity, hypertension, diabetes (onset 2 weeks ago) presenting to the ER with a feeling of general unwellness.. It appears that he has had several visits the ER for his knee pain and leg pain, and today came to the ER complaining about similar things but was found to be in atrial flutter (rate controlled) as part of the evaluation. Chest x-ray showed cardiomegaly, he was saturating fully on 2 L oxygen, blood pressure was initially elevated at 171/121 but came down to 121/91. Dr. Miller from cardiology is consulted, the day of admission. Because of the unknown onset of a flutter, no cardioversion was attempted. Interim patient appears mildly dyspneic, but states that this is his baseline though sometimes he feels worse than this saturating on 1 L of oxygen. He states that his legs have been swollen for several weeks now. [facility]. [facility] and they tried to give him Lasix by mouth, which she feels that actually making him gain more weight not lose weight. During this interview that is done by the help of a online retail reset merchandiser, patient has several times pointed out his abdomen stating that he would like to lose weight by taking the fat from his belly out, he needs a better medication as Lasix is not making him lose weight. He is endorsing 4 pounds per day weight gain of 20 days. He does not recall ever getting an echocardiogram. Patient states that he has some urinary hesitancy and dribbling that he feels is new in the last few days. He has voided prior to this interview and he feels that he has completed the urination. He says that his legs as well as thighs are swollen. He does not know if he has anasarca and his groin area. He is eating well and has good appetite, has no nausea vomiting, no GI symptoms whatsoever. Patient kept pointing to his legs during the review of systems saying that they hurt every time he walks. In fact he thinks they hurt more after his meniscal repair in March 2016. He feels stressed because he will lose his job by taking too many days off due to his inability to walk, and also due to his chronic low back pain. Patient is under a lot of stress because he is unable to walk his children to the park, unable to carry on his current work duties and afraid of losing his livelihood Patient states that he says [facility], they started him on antihypertensives 4 months ago, and diabetes medications just 2 weeks ago. He says that he wants a surgery today to follow the fact he has in his abdomen. Review of Systems: Patient is endorsing mild headache urine hesitancy, dyspnea at baseline, fatigue , bilateral leg and feet edema. Complete review of systems performed, pertinent positives and negatives per history of present illness and as above, all other systems reviewed and are negative. Allergies Coded Allergies: No Known Allergies (Unverified , 05/04/17) Home Medications Home medications include hydrochlorothiazide Lasix, metformin PMH Hypertension, diabetes, morbid obesity and tobacco abuse Surgical History Right meniscal repair knee surgery March 2016 Family History Mother when patient was 4 months old of unknown cause Father has hypertension Social History Occupation: [employer] Hx Alcohol Use: Yes Hx Substance Use: No Smoking Status: Current Every Day Smoker, Light Tobacco Smoker Living Arrangement: with Family Additional Information Currently out of work Exam Vital Signs Vital Sign - Last Date Time Temp Pulse Resp B/P Pulse Ox O2 Delivery O2 Flow Rate FiO2 05/04/17 16:15 75 21 121/91 98 Nasal Cannula 2 05/04/17 13:44 36.2 Exam Gen.: Patient appears to be in mild distress, morbidly obese HEENT: Normocephalic, atraumatic Heart: Rate regular, no S3-S4 murmurs lungs: Clear to auscultation, no crackles or wheezes Abdomen: Obese nontender, bowel sounds are present Extremities: 2+ pitting edema bilaterally below the knee and ankles Psych: Depressed mood Neck: Negative for JVD, does have a large neck Neuro: No focal deficits : No anasarca in groin area, exam done with nurse present. Lab and Diagnostics Result Diagram: 05/04/17 1559 05/04/17 8500 X-Rays, CTs and MRIs CXR 05/04 IMPRESSION: Cardiomegaly, without acute cardiopulmonary disease. Assessment & Plan This is a morbidly obese 72-year-old male with past medical history hypertension, diabetes, morbid obesity presenting today with vague complaints of leg swelling, pain and ankle swelling, pain, low back pain found to be in atrial flutter rate controlled in the ER Assessment #1 dyspnea, present on admission: Obesity hypoventilation versus PE versus ACS -- Patient is saturating fully and 1 L of oxygen in the room -- ABGs were ordered patient does have hypercapnia. Monitor oxygenation carefully, avoiding medications that could depress respiration -- PE protocol CT is ordered, metformin is held -- Trend troponins, rule out ACS Assessment #2 atrial flutter, present on admission unknown onset -- Dr. Lacey from cardiology is consulted, tried contacting him without success -- Due to unknown onset cardioversion was not performed in the ER -- He does not appear to need any rate control -- TSH T4, a couple in the a.m. to check for right ventricular strain -- CTA PE protocol -- We will consider full anticoagulation in the a.m. if if it remains a concern , will discuss with cardiology -- Telemetry monitoring -- Lipid panel, A1c and ordered -- Enoxaparin 40 mg twice a day Assessment #3 hypertension, chronic, active -- Continue medications Assessment #4 diabetes, chronic, active -- Low sliding scale, for metformin due to PE protocol Ct -- Before meals at bedtime checks -- A1c is ordered Assessment #5 urine dribbling, concern for attention, present on admission -- This may be due to constipation versus large abdominal girth, patient denies constipation -- Bladder scan is ordered to check for urine retention -- Urinalysis with reflex culture -- We will consider tamsulosin in the a.m. Assessment #6 chronic low back pain, active -- This appears to be also because the patient's morbid obesity. -- We will give guidance on how to connect with the bariatric surgery as he expressed interest in pursuing it -- Tylenol, tramadol for pain control Assessment #7 elevated BNP on admission present on admission, active -- BNP greater than 450 for his age range, cardiomegaly on chest x-ray, increased leg swelling -- IV Lasix 40 mg is given -- Accurate I and os, daily weights -- Echocardiogram in a.m. to check ejection fraction Pain Evaluation: Pain not Controlled Resuscitation Status: CPR: Attempt Resuscitation Time spent 1 hr Pain Evaluation: Pain not Controlled Resuscitation Status: CPR: Attempt Resuscitation Time spent 1 hr Sarah Godinez DO May 04, 2017 17:06
[2017-05-04 22:46] LABS: TROPONIN T 0.012 ug/L (0.0-0.011)
[2017-05-04 22:57] LABS: Creatine Kinase 141 U/L (21-232)
[2017-05-04 23:45] VITALS: BP 137/82; PULSE 82; RESP 26; O2SAT 94
[2017-05-05 04:22] LABS: BASOPHILS % (AUTO) 0.2 % (0-3); MONOCYTES % (AUTO) 13.1 % (4-12); Mean Corpuscular Hemoglobin 27.5 pg (27.0-35.0); Mean Corpuscular Volume 88.3 fL (81-100); NEUTROPHILS % (AUTO) 66.3 % (40-74); Platelet Count 258 bil/L (150-400)
--- NOTE | 2017-05-05 04:40 | NUR ---
On admit patient said he uses a home cpap for sleep. I spoke to the doctor and got an order for patient o use our vpap for the night. Patient has agreed to wear it. When i brought it to the room patient said he didn't plan on sleeping and didn't want to use the machine. Nurse was notified,
[2017-05-05 04:52] LABS: Creatine Kinase 137 U/L (21-232)
--- NOTE | 2017-05-05 04:52 | NUR ---
CPAP Pt refuses to wear CPAP while sleeping. On 2L NC with SP02 at 95%.
[2017-05-05 05:03] VITALS: BP 155/94; PULSE 58; RESP 22; O2SAT 95
[2017-05-05] MEDS: Insulin LISPRO 300 Unit/3 mL Inj SUBQ SCH ×4 (08:00→22:00)
[2017-05-05] MEDS ORDERED: Heparin 5,000 Unit/mL Inj IVPUSH ONE (08:50)
[2017-05-05 09:02] VITALS: BP 151/95; PULSE 74; RESP 24; O2SAT 93
[2017-05-05 09:51] LABS: INR 1.05 ratio
--- NOTE | 2017-05-05 10:32 | NUR ---
HR Call recd from tele several times re HR ranging 80-160. Pt states to be asymptomatic. Remains sitting up in bed. notified. Translation provided with face to face freelance interpreter/translator Vickie. Addendum: 05/05/17 at 1418 by SHON GOMEZ RN Another called just recd from tele. HR in one teens. Pt denies pain. Sitting on side of bed. pts appears to have perspiration on face, neck. RR 28. notified. PO metoprolol given.
--- NOTE | 2017-05-05 10:58 | NUR ---
Social Work-multidisciplinary rounds: Per MD in morning rounds, Pt to likely be here another 1-2 days. SW to complete assessment today. RENÉ Franco
--- NOTE | 2017-05-05 11:21 | NUR ---
Heparin drip Heparin drip started at 1115, verified with Bree Skinner RN. Bolus given per protocol. Teaching provided to pt regarding signs and symptoms of bleeding, pt denies having questions. Direct interpretation provided via Vickie.
[2017-05-05 11:22] VITALS: PULSE 82
--- NOTE | 2017-05-05 12:00 | DRSVH ---
PROCEDURE: CT ANGIO CHEST PULMONARY EMBOLISM ([id number]) INDICATIONS: dyspnea TECHNIQUE: After the administration of intravenous contrast, 2 mm thick sections acquired from the pulmonary api stephanie to the posterior costophrenic angles. 3-dimensional maximum intensity projection (MIP) coronal a nd sagittal reformats were then acquired through the thorax. For radiation dose reduction, the follo wing was used: automated exposure control, adjustment of mA and/or kV according to patient size. COMPARISON: [facility], CT, CT ANGIO CHEST PE, 01/10/2017, 13:08. FINDINGS: Image quality: Contrast opacification throughout the pulmonary arterial system is considered suboptim al. Pulmonary arteries: Pulmonary arteries are normal in size, and demonstrate no intraluminal filling d efects to suggest central pulmonary embolism. Branches beyond the main pulmonary arteries are consid ered suboptimally opacified for definitive emboli evaluation. There is heterogeneous appearance of di stal branches with areas of low attenuation present. Lungs and pleura: Scattered cluster of subcentimeter nodules are identified within the right middle l obe, new compared to prior exam. No pleural effusions or pneumothorax. Central and peripheral airway s are patent. Mediastinum: Heart size is normal, without pericardial effusion. No mediastinal or hilar adenopathy . Thoracic aorta is normal in caliber and enhancement. Esophagus is normal in caliber, without hiat al hernia. Bones and chest wall: No suspicious bony lesions. Ribs and thoracic spine appear intact throughout. Thyroid gland is unremarkable. No axillary or supraclavicular adenopathy. Abdomen: Visualized upper abdominal solid organs appear normal in the early arterial phase of enhanc ement. IMPRESSION: 1. Suboptimal evaluation of the pulmonary arteries as described above. No central pulmonary embolism. However, heterogeneous appearance of distal branches could be secondary to small emboli versus subop timal opacification and subsequent artifact. 2. Focal area of subcentimeter nodules within the right middle lobe. These can be seen with infection or inflammation, as they are new compared to 01/10/17. Atypical infection such as fungal or mycobacte rial should be considered as appropriate. Dictated by: Brandy Bentley M.D. on 05/05/2017 at 11:53 Approved by: Brandy Bentley M.D. on 05/05/2017 at 11:58
--- NOTE | 2017-05-05 12:07 | NUR ---
Fatigue/cough pt noted to be very tired. having a hard time keeping his eyes open and providing answers to questions asked. Pt seen to be snoring in between questions and profusely sweating. Pt denies pain, nausea, lightheadedness. Dr Tyson Godinez notified, states to be aware of "many problems" ECHO just completed at bedside. Constant cough noted, pt states it came on yesterday. Specimen cup provided for sample d/t pt swallowing sputum. Bed in low position, upper 2 rails up, call light in reach. Will continue to monitor.
--- NOTE | 2017-05-05 12:23 | NUR ---
Teaching ECHO ordered d/t "CHF" RN placed orders for DM and CHF teaching. Pt states to have been Dx with DM 15 days ago. Continues to have a lot of questions and not understanding proper diet and management. Pt stated via medical massage therapist this AM that he would like a liposuction to get rid of his abdominal fat and recent wt gain of about 80lbs. Addendum: 05/05/17 at 1952 by SHON GOMEZ RN This RN did CHF and DM teaching with pt and live medical massage therapist. Pamphlets left in Irish, all risk factors discussed. Pt had some questions. Pt encouraged to read over and ask any qestions tomorrow when RN returns and another medical massage therapist is available. Pt appeared sleepy, closing eyes mid sentence.
[2017-05-05 12:31] VITALS: BP 152/90; PULSE 100; RESP 24; O2SAT 95
--- NOTE | 2017-05-05 14:57 | NUR ---
Social Work-initial assessment/readiness for discharge: Data:See initial assessment. Pt is a 32 y/o male who was admitted on 05/04/17 for AFlutter per H&P. Pt's insurance is [employer] and PCP is [facility]. EMR Reviewed. JAYSHREE met with pt to discuss discharge planning, SW role explained. Pt is alert and oriented x3. Pt resides at home with his family in a mobile home with 2 steps to enter. Pt does not use any DME and drives. Pt has no HH or SNF history. Pt has no technician terminal and repeater care insurance or VA benefits. SW discussed DPOA/ advanced directive, pt has not completed this and is not interested in any information at this time. SW provided pt with discharge planning checklist booklist and encouraged him to call with any questions. SW provided phone number on white board in room. Pt's family to provide transport home at discharge. No anticipated discharge needs. SW will continue to follow if needs arise. Assessment:pt who is independent at baseline. Plan:Pt to discharge home when medically stable via POV. No anticipated discharge needs. SW will continue to follow if needs arise. RENÉ Franco Addendum: 05/05/17 at 1505 by CARLOS ALBERTO SNYDER Amended: Links added.
--- NOTE | 2017-05-05 16:00 | DRSVH ---
[facility] [address] [place] [address] Echocardiogram Report Name: PENNY RAE Study Date: 05/05/2017 Height: 74 in Hospital Exam Location: [facility] Weight: 429 lb Gender: Male BSA: 3.0 m2 : 1985 Age: 32 yrs BP: 155/94 mmHg Reason For Study: CHF, DYSPNEA Ordering Physician: LOLA TEAM Performed By: Shahriar Worley Interpretation Summary The left ventricle is mildly dilated. Left ventricular systolic function is low normal. The ejection fraction is estimated to be 50-55%. There has been no significant change since the previous study. There are no obvious focal wall motion abnormalities noted but poor endocardial definition reduces the sensitivity for the detection of such. The E/E' ratio is moderately increased, suggesting possible increased filling pressures. The right ventricle is mild to moderately dilated. Right ventricular systolic function is mildly reduced. There has been no significant change since the previous study. Pulmonary artery pressures cannot be estimated because of the lack of a measurable TR jet velocity. The left atrial size is normal. The right atrium is mildly dilated. The ascending aorta is mildly enlarged. Procedure: A two-dimensional transthoracic echocardiogram with color flow and Doppler was performed. The study quality was technically difficult. The patient had an echocardiogram, but there is no comparison study available. A contrast injection of Definity was performed to improve assessment of LV function. The patient was in atrial flutter during the exam. The patient had a heart rate of 50-91 beats per minute. Left Ventricle: The left ventricle is mildly dilated. Left ventricular wall thickness is mildly increased. Left ventricular systolic function is low normal. The ejection fraction is estimated to be 50-55%. There has been no significant change since the previous study. There are no obvious focal wall motion abnormalities noted but poor endocardial definition reduces the sensitivity for the detection of such. The E/E' ratio is moderately increased, suggesting possible increased filling pressures. Right Ventricle: The right ventricle is mild to moderately dilated. Right ventricular systolic function is mildly reduced. There has been no significant change since the previous study. Atria: The left atrial size is normal. The right atrium is mildly dilated. The interatrial septum is intact with no evidence for an atrial septal defect. Mitral Valve: The mitral valve is normal in structure and function. There is mild mitral annular calcification. There is trace mitral regurgitation. Aortic Valve: The aortic valve is grossly normal. There is no aortic valve stenosis. No aortic regurgitation is present. Tricuspid Valve: The tricuspid valve is normal in structure and function. There is trace tricuspid regurgitation. Pulmonary artery pressures cannot be estimated because of the lack of a measurable TR jet velocity. Pulmonic Valve: The pulmonic valve is not well visualized. There is no significant valvular heart disease. Great Vessels: The aortic root is normal size. The ascending aorta is mildly enlarged. The pulmonary artery is normal size. The IVC is dilated (diameter is greater than 2.1 cm) and it collapses less than 50% with a sniff. This suggests a high right atrial pressure of 15 mm Hg. Pericardium/ Pleura There is no pericardial effusion. There is no pleural effusion. MMode/2D Measurements & Calculations LVIDd: 6.0 cm LA dimension: 4.6 cm RA long axis Ao root diam LVIDs: 4.5 cm FS: 24.8 % LA A2 area: 23.6 cm RA area Aortic Jxn: 2.6 cm IVSd: 1.2 cm LA A4 area: 31.6 cm asc Aorta Diam LVPWd: 1.2 cm LA length (vol) : 28.9 cm RA vol Ao Arch Diam (Prox LA vol: 83.6 ml : 115.ml Trans): 3.2 cm LA vol index RA : 38.4 mm2 IVC diam: 2.6 cm LV main. diameter/BSA LV sys. diameter/BSA RVD1 (basal) RVD2 (mid): 6.2 cm (cm/m^2): 2.0 (cm/m^2): 1.5 Doppler Measurements & Calculations Ao V2 max MV E max enrique MV E/A: 279.8 PA V2 max : 162.3 cm/sec : 130.1 cm/sec Med Peak E' Enrique : 91.4 cm/sec Ao max PG MV A max enrique PA mean PG : 10.6 mmHg : 0.46 cm/sec E/E' med: 21.6 Ao mean PG PA Accel Time : 0.07 sec LVOT Max Enrique : 115.1 cm/sec sev ratio: 0.76 MV V2 mean Ao V2 mean LV V1 max PG PA V2 mean : 91.3 cm/sec : 117.7 cm/sec : 72.2 cm/sec MV mean PG Ao V2 VTI: 31.0 cm LV V1 VTI: 23.5 cm PA pr(Accel) : 46.6 mmHg MV V2 VTI: 25.4 cm MV dec time : 0.15 sec Reading Physician:CYRIL
[2017-05-05 16:03] VITALS: BP 148/88; PULSE 77; RESP 22; O2SAT 94
[2017-05-05] MEDS: Heparin 5,000 Unit/mL Inj IVPUSH PRN ×2 (16:03→23:27)
[2017-05-05 21:34] VITALS: BP 153/86; PULSE 73; RESP 22; O2SAT 95
--- NOTE | 2017-05-05 23:38 | PCM.PNMED ---
Subjective Date of Service May 05, 2017 Subjective Patient is seen and examined, with the help of spanish interpreter/translator. He has oxygen on, nurse states he did not have it on for the most part of the day and he was saturating fine on RA. He was hypercapnic yesterday so, we turned the oxygen off. Patient was falling asleep at times, clearly apneic. Explained plan of care to patient, that he may have to stay in the hospital due to heparin bridge to warfarin. He is too large to be considered for eliquis and insurance may or may not cover. He c/o knee and ankle pain, states his urine o/ p was not any more than his usual after lasix was given last night. Slightly feeling better. No other complaints. Exam Vital Signs Vital Sign - Last Date Time Temp Pulse Resp B/P Pulse Ox O2 Delivery O2 Flow Rate FiO2 05/05/17 21:34 36.7 73 22 153/86 95 Room Air 05/04/17 16:15 2 Intake and Output 05/04/17 05/04/17 05/05/17 Cumulative From/Thru 15:00 23:00 07:00 05/04/17 13:44 - 05/05/17 05:03 Intake Total 100 ml 100 ml Output Total 800 ml 800 ml Balance -700 ml -700 ml Intake Oral 100 ml 100 ml Output Urine Total 800 ml 800 ml # Bowel Movements 0 0 Exam Gen.: Patient appears to be in mild distress, morbidly obese HEENT: Normocephalic, atraumatic Heart: Rate regular, no S3-S4 murmurs lungs: Clear to auscultation, no crackles or wheezes Abdomen: Obese nontender, bowel sounds are present Extremities: 2+ pitting edema bilaterally below the knee and ankles Psych: Depressed mood Neck: Negative for JVD, does have a large neck Neuro: No focal deficits IVs and Medications Medications Reviewed: Medications were reviewed in detail Lab and Diagnostics Result Diagram: 05/05/1740905/05/17409 X-Rays, CTs and MRIs CXR 05/04 IMPRESSION: Cardiomegaly, without acute cardiopulmonary disease. Assessment & Plan This is a morbidly obese 72-year-old male with past medical history hypertension, diabetes, morbid obesity presenting today with vague complaints of leg swelling, pain and ankle swelling, pain, low back pain found to be in atrial flutter rate controlled in the ER Assessment #1 Dyspnea, present on admission: GERI vs Obesity hypoventilation versus PE versus ACS -- Patient is saturating fully and 1 L of oxygen in the room, turned it off as patient was dozing off during the interview -- ABGs were ordered as patient does have hypercapnia. Monitor oxygenation carefully, avoiding medications that could depress respiration -- PE protocol CT is ordered, metformin is held 05/04: Neg for PE -- ACS ruled out: Slight elev in troponin attributed to aflutter. -- Assessment #2 Pickwickian Syndrome, chronic active -- Hypercapnia due to obesity hypoventilation syndrome -- Care ful administration of oxygen and pain meds to avoid resp depression Assessment #3 Probable Obstructive Sleep Apnea, poa acitve --Pt will definitely need an o/p sleep study, infact Dr. Beth Harris states his afib/aflutter will return even if he concerted if he does not get treated for GERI --Will contact pulmonology to see what we can do in the inpatient setting Assessment #4 atrial flutter, present on admission unknown onset -- Dr. Lacey from cardiology is consulted, tried contacting him without success on 05/04 -- Dr. Harris was contacted on 05/05 AM, an update was given. Recommends anticoagulation with warfarin. -- Due to unknown time of onset cardioversion was not performed in the ER -- PAtient did have episodes of tachycardia with activity on tele, was placed on PO Metoprolol which seemed to control his rate better -- TSH T4, a couple in the a.m. -- Echo does show some right ventricular strain -- CTA PE protocol: no PE -- Telemetry monitoring -- Lipid panel, A1c and ordered A1C 6.7 -- PT is placed on heparin drip to bridge to coumadin Assessment #5 hypertension, chronic, active -- Continue home medications -- Metorprolol Tartrate 25 mg PO BID Assessment #6 diabetes, chronic, active -- Low sliding scale, for metformin due to PE protocol Ct -- Before meals at bedtime checks -- A1c is ordered 6.7 Assessment #7 urine dribbling, concern for attention, present on admission -- This may be due to constipation versus large abdominal girth, patient denies constipation -- Bladder scan is ordered to check for urine retention: no result found but appears he had 372 cc. Will recheck in the am -- Urinalysis with reflex culture: negative for infection -- Started patient on tamsulosin Assessment #8 chronic low back pain, active -- This appears to be also because the patient's morbid obesity. -- We will give guidance on how to connect with the bariatric surgery as he expressed interest in pursuing it -- Tylenol, tramadol for pain control Assessment #9 elevated BNP on admission present on admission, active -- BNP greater than 450 for his age range, cardiomegaly on chest x-ray, increased leg swelling -- IV Lasix 40 mg is given -- Accurate I and os, daily weights -- Echocardiogram in a.m. to check ejection fraction "The left ventricle is mildly dilated. Left ventricular systolic function is low normal. The ejection fraction is estimated to be 50-55%. There has been no significant change since the previous study. The right ventricle is mild to moderately dilated. Right ventricular systolic function is mildly reduced. There has been no significant change since the previous study. The right atrium is mildly dilated. The ascending aorta is mildly enlarged." Pain Evaluation: Pain Controlled Resuscitation Status: CPR: Attempt Resuscitation Time spent 30 min Pain Evaluation: Adequate Pain Control VTE Mechanical Devices: Venous Foot Pump Resuscitation Status: CPR: Attempt Resuscitation Time spent 30 min Sarah Godinez DO May 05, 2017 23:38
[2017-05-06] VITALS (9 sets, daily range): BP systolic 129–150; BP diastolic 67–99; PULSE 61–103; RESP 19–24; O2SAT 90–97
--- NOTE | 2017-05-06 04:30 | NUR ---
Heparin Gtt/ Sleep/Tele On Heparin Gtt Cardiac Protocol , presently @ 1400 U/Hr , last Ptt Heparin 28.8. Pt had episode of restlessness while trying to fall asleep, agreed to us C-Pap , and the refused to use it when RT came to fit and adjust, removed pulse Ox sensor from finger, this is a repeat situation from previous nights. Spent several hours sleeping sitting in chair. Has had runs of Tachycardia on exertion up to the 160 range , HR will then subside upon rest. Tele: Afib/flutter as low as 30 and as high as 160.
[2017-05-06 05:47] LABS: INR 1.04 ratio
[2017-05-06] MEDS: Heparin 5,000 Unit/mL Inj IVPUSH PRN ×3 (06:03→17:47)
[2017-05-06] MEDS: Insulin LISPRO 300 Unit/3 mL Inj SUBQ SCH ×4 (07:38→20:04)
--- NOTE | 2017-05-06 10:30 | NUR ---
Teaching/Cpap/continuous pulse ox Pt with sleep apnea & per noc report, pt refused to wear hospital provided cpap d/t "feeling like I'm going suffocate" translated via live rehab services aide. RN called RT. RT changed settings on cpap and pt stated that now it was better. within 20 min., machine heard to be beeping d/t a leak, pt was sating at 94%. Pt seen to have thrown the machine to the floor, took of his continuos pulse ox and said he didn't want to wear either one again. Face mask readjusted for better fit by RT again, pt promised to wear both again. Live interpretation provided at bedside, lots of focus made on CHF, DM, and foods related to the diagnoses. Pt denied having questions. RN called accounting manager, confirmed teaching is scheduled to happen today.
--- NOTE | 2017-05-06 11:02 | NUR ---
PVR Per MD note from 05/05, bladder scanned and found 40mL in residual after voiding 250mL. Pt denies dysuria and or difficulty in starting stream. Flomax given this AM per orders. RN spoke with pharmacist to see if Flomax could be d/c.
--- NOTE | 2017-05-06 11:43 | PCM.PHAPRO ---
Progress Malaise, leg pain, leg edema, the back pain Date May 06-Apr INR 1.05 1.04 INR change -0.01 Warf Dose 5MG 5 Mark Lagos Pharm.D May 06, 2017 11:43
--- NOTE | 2017-05-06 15:31 | NUR ---
Social Work: Multidisciplinary rounds No updates from rounds. Continues to have no d/c planning needs at this time. RENÉ Trujillo
--- NOTE | 2017-05-06 16:52 | NUR ---
Called to pt. room. Pt. says the VPAP is too much and the settings had changed. Pt. requested the change of increased settings at 1200. Stated the settings weren't high enough and he could not breathe. Settings returned back to initial Auto VPAP settings of 18/5 for pt comfort.
--- NOTE | 2017-05-06 18:16 | CONS ---
[address] [address] CONSULTATION REPORT PATIENT: PENNY RAE : 1985 MR#: [id number] ADMIT: 05/04/2017 JOB ID: [id number] DATE OF SERVICE: 05/06/2017 REQUESTING PHYSICIAN: Dr. Godinez HISTORY OF PRESENT ILLNESS: I saw and examined the patient. Please see the notes by Mango Potter PA-C for details. IMPRESSION: 1. Atrial flutter, rate control of unknown duration. 2. Right sided heart failure from Pickwickian syndrome. 3. Morbid obesity with BMI of 54.3 kg/m2. 4. Diabetes mellitus. 5. Hypertension. 6. Tobacco use. 7. Ongoing alcohol consumption. 8. Obstructive sleep apnea, untreated. PLAN: His atrial flutter rate is currently under control with beta figueroa. The patient will require long-term anticoagulation for his atrial flutter. The patient is not a candidate for cardioversion until he has his obstructive sleep apnea treated. I explained to the patient and his with a thermoscrew operator regarding his overall health and morbid obesity. The patient is interested in having a gastric bypass surgery. Once he has his obstructive sleep apnea treated, I will refer him to [facility] for consideration of gastric bypass surgery. SHADY
--- NOTE | 2017-05-06 18:36 | CONS ---
[address] [address] CARDIOLOGY INPATIENT CONSULTATION REPORT PATIENT: PENNY RAE : 1985 MR#: [id number] ADMIT: 05/04/2017 JOB ID: [id number] DATE OF SERVICE: 05/06/2017 REASON FOR CONSULTATION: Lower extremity edema, atrial flutter. HISTORY OF PRESENT ILLNESS: This is a pleasant, Hebrew-speaking, 32-year-old gentleman with whom I communicated through historic interpreter. He has morbid obesity. Recently diagnosed diabetes mellitus, history of hypertension, who presented to the Emergency Department at [facility] and was admitted on May 04, 2017 with worsening swelling in his legs. The patient tells me that one month ago he noticed swelling in his legs below his knee which was getting worse and he was gaining a lot of weight. He goes often to [facility] clinic where they take care of him, and he was prescribed his medications - diuretic, blood pressure medication and also his diabetes was managed there. After starting these medication, he did not notice any big changes at all. He continued having worsening swelling in his legs and also last week or so noticed worsening dyspnea on exertion/shortness of breath. Also at night he has been having difficulty lying down flat and he has been waking up with difficulty breathing. He had in the past dyspnea on exertion and he tells me that in December 2016, he was in hospital and it looks like per medical records, he had a septic condition back at that time. After discharge, he was given oxygen to use which he uses periodically when he needs. He never had a sleep study done and he does not have documented history of obstructive sleep apnea. The patient tells me that he takes all medications as prescribed. He denies having any chest discomfort and having any palpitations, dizziness or lightheadedness, presyncopal or syncopal episodes. On admission in the emergency department, he was found to be in atrial flutter with rate controlled at 70s beats per minute. It is newly diagnosed. He does not have history of it. He was hypertensive with blood pressure 171/120. He had negative troponin on admission, with just very minute increase on second reading and normalization of third troponin. He had normal kidney function and electrolytes. Abnormal LFTs. REVIEW OF SYSTEMS: A 12 point of review of systems are negative except the one mentioned in HPI. MEDICATIONS: I do not know which medications he is taking at home. The patient does not know exactly. PAST MEDICAL HISTORY: 1. Hypertension. 2. Newly diagnosed diabetes mellitus. 3. Morbid obesity. SURGICAL HISTORY: Right meniscal repair and knee surgery in March 2016. FAMILY HISTORY: Denies family history of coronary disease. SOCIAL HISTORY: He has a history of tobacco use; several cigarettes a day for many years. He quit recently. Drinks beer up to two cans every day. Denies recreational drug use. PHYSICAL EXAMINATION: Vital signs: Temperature 36.9 Celsius, pulse 77 beats per minute, respiratory rate 24, blood pressure 147/78 mm/Hg. Pulse oximetry 94% saturation on room air. General: In no acute distress. Morbid obesity. Speaks in full sentences. When he was lying down, he periodically falls asleep but after sitting up, was not falling asleep anymore. ENT: Mucous membranes moist. No thyromegaly. Neck supple. No thyromegaly. No carotid bruits appreciated. Pulm: Slightly decreased breathing sounds bilaterally, bibasilar crackles. No wheezing. Cardiac: Irregular rhythm. No murmur appreciated. JVP is hard to assess. Abdomen nontender with palpation. Extremities: Lower extremity edema, 2 + pitting. Skin: Dry and warm. No rash. Neuro: Alert and oriented x3. No gross abnormalities noted. LABORATORY DATA: Labs from May 06, 2017: Sodium 141, potassium 3.8, chloride 102, carbon dioxide 24, BUN 17, creatinine 0.9. Glucose 109, calcium 8.6. Total bilirubin 1.1. AST 17, ALT 11, alkaline phosphatase 67. He had negative troponins on May 05, 2017. Triglycerides 126, cholesterol 180, LDL 96, HDL 58. TSH 2.61, free T4 of 1.15. White blood cells 9.2, red blood cells 4.87, hemoglobin 13.4, hematocrit 43, platelets 258. DIAGNOSTIC DATA: Echo from May 05, 2017 showed left ventricle is mildly dilated. Left ventricular systolic function is low normal. Ejection fraction 50% to 55%. No significant changes since the previous study. No obvious focal wall motion abnormalities. Right ventricle is [id number] dilated. Right ventricular systolic function is mildly reduced. No significant changes again comparing to previous study. Pulmonary artery pressure could not be estimated because of the lack of a measurable TR jet. The left atrial size is normal. The right atrial is mildly dilated. The ascending aorta is mildly enlarged. His right atrial pressure is 15 mm/Hg. CT chest angio from May 05, 2017 did not show any central pulmonary embolism. It is noted that heterogenous appearance of distal branches could be secondary to small emboli versus suboptimal opacification and subsequent infarct. He also had focal area of subcentimeter nodules within the right middle lobe. It was noted that this can be seen with infection or inflammation as they are new compared to January 10, 2017. Atypical infection such as fungal mycobacterial should be considered as appropriate. ASSESSMENT AND PLAN: This is a 32-year-old, Hebrew-speaking gentleman, who was admitted on May 04, 2017 with worsening dyspnea and swelling in his legs and found to be in atrial flutter, rate controlled, newly diagnosed. He has morbid obesity, history of hypertension, recently diagnosed diabetes mellitus. # Atrial flutter rate controlled newly diagnosed. Currently he is on beta figueroa, metoprolol tartrate 25 mg b.i.d; would recommend to continue the same dose. He will require long-term anticoagulation for his atrial flutter. He already was started on warfarin. The case was discussed with stationary engineer apprentice membership solicitor Dr. Harris who recommended that the patient is not a candidate for cardioversion until he has his obstructive sleep apnea treated. The patient needs to be referred for sleep study for evaluation and treatment of his obstructive sleep apnea which is crucial for him since he has atrial flutter and HTN. # Right heart failure. He is volume overloaded on exam. Would recommend stopping his furosemide 20 mg po and diurese him with furosemide 20 mg IV every 8 hours. Continue hydrochlorothiazide, but would recommend to decrease the dose to 12.5 mg daily. # Hypertension. The patient is hypertensive. Will recommend starting him on losartan 50 mg daily and uptitrate it as needed. # Morbid obesity The patient expressed interest in having a gastric bypass surgery; he can be referred to in regard of this, once he is treated for GERI. The case was discussed with membership solicitor, Dr. Perrin, who agreed with assessment and plan. SHADY
[2017-05-06] MEDS: Furosemide 10 mg/mL 2 mL Inj IVPUSH SCH (20:02)
--- NOTE | 2017-05-06 20:46 | PCM.PNMED ---
Subjective Date of Service May 06, 2017 Subjective Patient is seen and examined. He is showing concern for tachycardia with movement but otherwise maintaining her rate, aflutter rhythm. I have discussed machinery rigger's recommendations with him. He says that he has tried the CPAP last night and it was very uncomfortable, they have just adjusted the settings and it is more comfortable now, he agrees to keep trying. He is agreeable to working with physical therapy also Exam Vital Signs Vital Sign - Last Date Time Temp Pulse Resp B/P Pulse Ox O2 Delivery O2 Flow Rate FiO2 05/06/17 20:03 36.9 103 22 144/67 95 Room Air 05/06/17 16:56 2.00 Intake and Output 05/05/17 05/05/17 05/06/17 Cumulative From/Thru 15:00 23:00 07:00 05/04/17 13:44 - 05/06/17 05:06 Intake Total 1219 ml 233 ml 1552 ml Output Total 800 ml Balance 1219 ml 233 ml 752 ml Intake Oral 1072 ml 1172 ml IV Total 147 ml 233 ml 380 ml Output Urine Total 800 ml # Voids 3 3 # Bowel Movements 0 0 Exam Gen.: Patient appears to be in no distress, morbidly obese HEENT: Normocephalic, atraumatic Heart: Rate regular, no S3-S4 murmurs lungs: Clear to auscultation, no crackles or wheezes Abdomen: Obese nontender, bowel sounds are present Extremities: 2+ pitting edema bilaterally in ankles Psych: Depressed mood Neck: Negative for JVD, does have a large neck Neuro: No focal deficits IVs and Medications Medications Reviewed: Medications were reviewed in detail Lab and Diagnostics Result Diagram: 05/06/17 0513 05/06/17 0543 X-Rays, CTs and MRIs CXR 05/04 IMPRESSION: Cardiomegaly, without acute cardiopulmonary disease. Assessment & Plan This is a morbidly obese 72-year-old male with past medical history hypertension, diabetes, morbid obesity presenting today with vague complaints of leg swelling, pain and ankle swelling, pain, low back pain found to be in atrial flutter rate controlled in the ER #Dyspnea due to Obesity hypoventilation and Aflutter --Patient is not on oxygen on 05/06, more alert and oriented --ABGs were ordered as patient does have hypercapnia. Monitor oxygenation carefully, avoiding medications that could depress respiration --PE protocol CT is ordered, metformin is held 05/04: Neg for PE --ACS ruled out: Slight elev in troponin attributed to aflutter. -- Disability Insurance Claim Examiner consulted, Dr. Harris has seen the patient. They recommend treating GERI, continuing anticoagulation. He will not cardiovert the patient if this is not controlled, as atrial flutter revealed likely return if sleep apnea continues to be a problem # Probable Obstructive Sleep Apnea, poa acitve --Pt will definitely need an o/p sleep study, infact Dr. Beth Harris states his afib/aflutter will return even if he converted the rythm if he does not get treated for GERI --Will contact pulmonology to see what we can do in the inpatient setting --Patient is now using CPAP learning to tolerate it better # atrial flutter, present on admission unknown onset -- Dr. Lacey from cardiology is consulted, tried contacting him without success on 05/04 -- Dr. Harris was contacted on 05/05 AM, an update was given. Recommends anticoagulation with warfarin. -- Dr. Hraris has seen the patient on 05/06. Recommends GERI treatment -- Due to unknown time of onset cardioversion was not performed in the ER -- Patient did have episodes of tachycardia with activity on tele, was placed on PO Metoprolol which seemed to control his rate better -- TSH T4, a couple in the a.m. WNL -- Echo does show some right ventricular strain -- CTA PE protocol: no PE -- Telemetry monitoring -- Lipid panel, A1c and ordered A1C 6.7 -- PT is placed on heparin drip to bridge to coumadin -- INR is still 1.04 Hypertension, chronic, active -- Continue home medications -- Metorprolol Tartrate 25 mg PO BID diabetes, chronic, active -- Low sliding scale, for metformin due to PE protocol Ct -- Before meals at bedtime checks -- A1c is ordered 6.7 urine dribbling, concern for retention, present on admission: ruled out -- This may be due to constipation versus large abdominal girth, patient denies constipation -- Urine output review showed that bladder scan did not show any retention, urinary. Inaccurate records because patient is not always collecting the urine. -- Urinalysis with reflex culture: negative for infection -- Tamsulosin was re-reviewed and discontinued (nursing confirmed that pt had no residual on bladder scan) chronic low back pain, active -- This appears to be also because the patient's morbid obesity. -- We will give guidance on how to connect with the bariatric surgery as he expressed interest in pursuing it -- Tylenol, tramadol for pain control Acute Systolic Heart Failure present on admission, active -- BNP greater than 450 for his age range, cardiomegaly on chest x-ray, increased leg swelling -- IV Lasix 40 mg is given -- Accurate I and os, daily weights -- Echocardiogram in a.m. to check ejection fraction -- Continue home lasix "The left ventricle is mildly dilated. Left ventricular systolic function is low normal. The ejection fraction is estimated to be 50-55%. There has been no significant change since the previous study. The right ventricle is mild to moderately dilated. Right ventricular systolic function is mildly reduced. There has been no significant change since the previous study. The right atrium is mildly dilated. The ascending aorta is mildly enlarged." Chronic venous stasis active -- Compression stockings, DVT palms and ordered Pain Evaluation: Pain Controlled Resuscitation Status: CPR: Attempt Resuscitation Time spent 30 min Pain Evaluation: Adequate Pain Control VTE Mechanical Devices: Venous Foot Pump Resuscitation Status: CPR: Attempt Resuscitation Time spent 30 min Sarah Godinez DO May 06, 2017 20:46
[2017-05-07] VITALS (9 sets, daily range): BP systolic 129–160; BP diastolic 75–111; PULSE 62–94; RESP 18–28; O2SAT 89–97
[2017-05-07] MEDS: Heparin 25K Unit/500mL 0.45 NS 25,000 UNIT in IV Premix 1 EACH IV SCH ×2 (00:01→14:34)
[2017-05-07] MEDS: Heparin 5,000 Unit/mL Inj IVPUSH PRN ×4 (00:02→20:40)
--- NOTE | 2017-05-07 06:14 | NUR ---
Respiratory While awake up in chair no respiratory issues noted. Once in bed SpO2 noted to be in low 80's on RA. Encouraged to be compliant with CPAP. RT notified per patient request to assist with mask and settings to help with compliance. Will continue to encourage cooperation with care.
[2017-05-07 07:06] LABS: INR 1.04 ratio
[2017-05-07] MEDS: Furosemide 10 mg/mL 2 mL Inj IVPUSH SCH ×3 (07:51→23:51)
--- NOTE | 2017-05-07 07:52 | ABG ---
DateTimeAnalyzed 07:44:59 -_ pH ____7.403 - 7.350 7.450 pCO2 ___53.7__ -mmHg 35.0 45.0 pO2 ___69.2__ -mmHg 69.0 116 HCO3- ___33.4__ -mmol/L 22.0 26.0 ABE ____7.6__ -mmol/L tHb ___14.3__ -g/dL O2Hb ___91.6__ -% COHb ____1.5__ -% 1.5 MetHb ____0.2__ -% sO2 ___93.1__ -% FIO2 ___21.0__ -% Drawn By rs - Date/Time Notified____ 07:52:00 -_ Notified By rs - Notified Whom Godinez, Sarah - K+ ____3.9__ -mmol/L tO2 ___18.4__ -Vol% Dariusz test N/A -
[2017-05-07] MEDS: Insulin LISPRO 300 Unit/3 mL Inj SUBQ SCH ×4 (07:56→20:42)
--- NOTE | 2017-05-07 10:59 | PROG NOTE ---
[address] [address] PROGRESS NOTE PATIENT: PENNY RAE : 1985 MR#: [id number] ADMIT: 05/04/2017 JOB ID: [id number] DATE: 05/07/2017 SUBJECTIVE: The patient complains of being hungry. He does not have enough food to eat. His legs do swell. He would like to feel better quickly. He would like to go home. PHYSICAL EXAMINATION: Temperature is 37.3. Blood pressure is 156/91. Pulse 78. Body weight is 191 kg (came down 3.5 kg from admission). He appears in no acute distress. Head and face have normal configuration. Narrow oropharynx. Neck: JVP was difficult to evaluate due to nuchal obesity. Lungs are clear in the upper lung field and anteriorly. Diminished breath sounds at base. Heart: Distant heart sounds. Abdomen: Morbidly obese. Extremities: 4+ edema. Skin: warm and dry. Neurology: Awake and oriented. BLOOD TESTS: Show hemoglobin 14.0. Sodium 141, potassium 4.3, chloride 99, bicarbonate 28, BUN 18, creatinine 0.76, glucose 120. IMPRESSION: 1. Atrial flutter, rate control of unknown duration. 2. Right-sided heart failure from Pickwickian syndrome. 3. Morbid obesity with BMI of 34.3 kg/m2. 4. Diabetes mellitus. 5. Hypertension. 6. Tobacco use. 7. Ongoing alcohol consumption. 8. Obstructive sleep apnea, untreated. PLAN: I will start the patient on warfarin 10 mg once daily and titrate for INR between 2 and 3. The dose of furosemide will be increased from 20 mg to 40 mg IV q.8 hours. Losartan will be increased from 50 mg once daily to 50 mg twice daily. MTDD
--- NOTE | 2017-05-07 11:22 | PCM.PHAPRO ---
Progress Date of Service: May 07, 2017 Malaise, leg pain, leg edema, the back pain WARFARIN MANAGEMENT A\ 32 YO m with new onset AFIB goal INR=2-3 Current INR=1.04 [id number] Pt is currently on a heparin drip Warfarin typically takes 3 days to see effect from a dose. This pt's being younger and larger may take longer to get into range. Digital Cartographic Technician has ordered Warfarin 10mg POx1 tonight and for pharmacy to adjust after. Tramadol can increase risk of bleeding with Warfarin. P\ Warfarin 10mg tonight per cardiology and monitor daily INRs. Bari Jiménez [facility] May 07, 2017 11:22
--- NOTE | 2017-05-07 13:22 | NUR ---
Evaluation completed. Please go to "Notes" then click on "Assessments and Notes" (bottom left corner of screen). Then select appropriate discipline tab on top of screen.
--- NOTE | 2017-05-07 16:34 | PCM.CHPMED ---
Subjective Date of Service: May 07, 2017 Primary Physician: Admitting Physician: Sarah Godinez DO Primary Care Physician: [facility] Fryelizet[facility] Attending Physician: Sarah Godinez DO Chief Complaint: Chief Complaint: Pulmonary care consultation Cameron Yadav PGY3 and Operations Support Analyst Dr. Caceres Reason for consultation: Hypercapnia in the setting of morbid obesity. History of Present Illness: Patient is a 32-year-old male with past medical history significant for super morbid obesity, hypertension, recently diagnosed diabetes type II, and chronic back and knee pain presented to the ED 3 days ago with increasing generalized weakness and increasing bilateral lower leg swelling. Per patient, he complains of worsening shortness of breath and coughing over the past 4 weeks. Evaluation at [facility] recommended the patient be admitted to the hospital for probable CHF. He has shortness of breath for the past 1 year, worst when he lies flat, sleeps with 2 pillows. Patient admits to using intermittent O2 3 L at home. Coughing is new, also worsening when he lies down. Patient has significant weight gain within the past week in addition to increasing leg swellings. Patient states limited mobility, can walk 10-15 minutes, avoid stairs due to shortness of breath. Patient to fatigue from most of the days. She denies any fevers chills night sweats, chest pain, or lightheaded and dizziness. 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 Today, patient reports feeling significantly better secondary to better sleep on CPAP. Review of Systems: A comprehensive review of systems was conducted with the patient and found to be negative except as above in the History of Present Illness. PMH Past Medical History Hypertension DM II, recent diagnosed Morbid Obesity Stage II Tobacco use disorder Chronic pain (knee and back) Bedside Blood Glucose: 125 Surgical History Right meniscal repair knee surgery March 2016 Home Medications Furosemide (Furosemide) 20 Mg Tab 20 MG PO DAILY Hydrochlorothiazide (Hydrochlorothiazide) 25 Mg Tablet 25 MG PO DAILY Metformin (Metformin) 500 Mg Tablet 500 MG PO BID Allergies: Coded Allergies: No Known Allergies (Unverified , 05/04/17) Family History Family History Mother - unknown cause Father - DM II and HTN Social History Occupation: [employer] Hx Alcohol Use: YesHx Substance Use: No Smoking Status: Current Every Day Smoker Light Tobacco Smoker Living Arrangement: with Family Exam Vital Signs Vital Sign - Last Date Time Temp Pulse Resp B/P Pulse Ox O2 Delivery O2 Flow Rate FiO2 05/07/17 14:25 36.8 62 18 138/77 97 CPAP 2.00 Intake and Output 05/06/17 05/06/17 05/07/17 Cumulative From/Thru 15:00 23:00 07:00 05/04/17 13:44 - 05/07/17 06:09 Intake Total 1425 ml 400 ml 800 ml 4177 ml Output Total 1100 ml 1450 ml 3350 ml Balance 325 ml 400 ml -650 ml 827 ml Intake Oral 1425 ml 800 ml 3397 ml IV Total 400 ml 780 ml Output Urine Total 1100 ml 1450 ml 3350 ml # Voids 4 7 # Bowel Movements 1 1 General: Alert, Oriented X3, Other (drowsy, frequently fall asleep upon our evaluation. Morbidly obese) Eyes: PERRLA, EOMI, Scleral Anicteric Mouth: Mucous Membr Moist/[place] Neck: Other (thick neck) Chest & Lungs: Clear to auscultation & percussion, Other (no wheezes, crackles , or rhonchi) Cardiovascular: Regular Rate/Rhythm, No Murmurs/Rubs/Gallops Musculoskeletal: Unremarkable Extremities: Edema (bilateral pitting edema, up to the knees), Other (no nail clubbing) Neurological: Grossly Neurologically Intact, Cranial Nerves 2-12 Intact Lab and Diagnostics Result Diagram: 05/07/1761205/07/17612 Assessment & Plan Assessment Patient is a 32-year-old male with past medical history significant for super morbid obesity, hypertension, recently diagnosed diabetes type II, and chronic back and knee pain presented to the ED 3 days ago with increasing generalized weakness and increasing bilateral lower leg swelling. Pulmonology has been consulted for hypercapnia. Problem List # Morbid obesity class II # Obesity hypoventilation syndrome # CRF/hypercapnia Given significant obesity, BMI 54, pt likely has obesity hypoventilation syndrome based on daytime ABG which shows normal pH however retaining PCO2 and compensated metabolic alkalosis. Additionally, patient most likely has sleep apnea as well based on interview. Echocardiogram within normal limits, though suggests increase right filling pressure, indicative of pulmonary hypertension. Concerns for development of significant heart failure based on risk factors. For now, patient requires nocturnal and daytime when necessary volume ventilation. BiPAP insufficient due to severity of condition, obesity hypoventilation syndrome is primary cause of CRF/hypercapnia. PLAN: - Recommend Trilogy. Lena Moreno of [employer] has been contacted and will evaluate for Trilogy. Total time spent 1hr Problems: Pain Evaluation: Adequate Pain Control VTE Mechanical Devices: Venous Foot Pump Resuscitation Status: CPR: Attempt Resuscitation copies to: [facility] ALMEIDA Phuc H DO May 07, 2017 16:34
--- NOTE | 2017-05-07 21:24 | PCM.PNMED ---
Subjective Date of Service May 07, 2017 Subjective Patient is urinating more per I&O reported though he denies it. He is asking how many days he has to stay in the hospital, we discussed the fact that his INR is not therapeutic yet. Dr. palma from pulmonology has seen the patient for obstructive sleep apnea. Recommendations are pending. ABG shows worsened hypercapnia today. Patient states that he does not feel much different from yesterday. Still tachycardic in 120s to 130s when ambulating per PT OT Exam Vital Signs Vital Sign - Last Date Time Temp Pulse Resp B/P Pulse Ox O2 Delivery O2 Flow Rate FiO2 05/07/17 14:25 36.8 62 18 138/77 97 CPAP 2.00 Intake and Output 05/06/17 05/06/17 05/07/17 Cumulative From/Thru 15:00 23:00 07:00 05/04/17 13:44 - 05/07/17 06:09 Intake Total 1425 ml 400 ml 800 ml 4177 ml Output Total 1100 ml 1450 ml 3350 ml Balance 325 ml 400 ml -650 ml 827 ml Intake Oral 1425 ml 800 ml 3397 ml IV Total 400 ml 780 ml Output Urine Total 1100 ml 1450 ml 3350 ml # Voids 4 7 # Bowel Movements 1 1 Exam Gen.: Patient appears to be in no distress, morbidly obese HEENT: Normocephalic, atraumatic Heart: Rate regular, no S3-S4 murmurs lungs: Clear to auscultation, no crackles or wheezes Abdomen: Obese nontender, bowel sounds are present Extremities: 2+ pitting edema bilaterally in ankles, improved proximally but not in feet probably due to gravity affect Psych: cooperative mood Neck: Negative for JVD, does have a large neck Neuro: No focal deficits IVs and Medications Medications Reviewed: Medications were reviewed in detail Lab and Diagnostics Result Diagram: 05/07/1761205/07/17612 X-Rays, CTs and MRIs CXR 05/04 IMPRESSION: Cardiomegaly, without acute cardiopulmonary disease. Cardiac Echo Impressions Echocardiogram Report The left ventricle is mildly dilated. Left ventricular systolic function is low normal. The ejection fraction is estimated to be 50-55%. There has been no significant change since the previous study. There are no obvious focal wall motion abnormalities noted but poor endocardial definition reduces the sensitivity for the detection of such. The E/E' ratio is moderately increased, suggesting possible increased filling pressures. The right ventricle is mild to moderately dilated. Right ventricular systolic function is mildly reduced. There has been no significant change since the previous study. Pulmonary artery pressures cannot be estimated because of the lack of a measurable TR jet velocity. The left atrial size is normal. The right atrium is mildly dilated. The ascending aorta is mildly enlarged. Reading Physician:PM Assessment & Plan This is a morbidly obese 72-year-old male with past medical history hypertension, diabetes, morbid obesity presenting today with vague complaints of leg swelling, pain and ankle swelling, pain, low back pain found to be in atrial flutter rate controlled in the ER #Dyspnea due to Obesity hypoventilation and Aflutter --Patient is not on oxygen on 05/06, more alert and oriented --ABGs were ordered as patient does have hypercapnia. Monitor oxygenation carefully, avoiding medications that could depress respiration --PE protocol CT is ordered, metformin is held 05/04: Neg for PE --ACS ruled out: Slight elev in troponin attributed to aflutter. -- Ux Developer consulted, Dr. Harris has seen the patient. They recommend treating GERI, continuing anticoagulation. Dr. Harris will not cardiovert the patient if this is not controlled, as atrial flutter revealed likely return if sleep apnea continues to be a problem -- Dr. Caceres, golf professional consulted, he requested the care of ABG on patient which was ordered: Worsened hypercapnia 56. -- Dr. Caceres recommends trilogy BIPAP consult for patient. # Obstructive Sleep Apnea, poa acitve --Pt will definitely need an o/p sleep study, infact Dr. Beth Harris states his afib/aflutter will return even if he converted the rythm if he does not get treated for GERI --Patient is now using CPAP learning to tolerate it better --Dr. Skinner golf professional consulted, he requested the care of ABG on patient which was ordered: Worsened hypercapnia 56 --Dr. Caceres recommends trilogy BIPAP consult for patient. # Atrial flutter, present on admission unknown onset -- Dr. Lacey from cardiology is consulted, tried contacting him without success on 7/11 -- Dr. Harris was contacted on 05/05 AM, an update was given. Recommends anticoagulation with warfarin. -- Dr. Harris has seen the patient on 05/06. Recommends GERI treatment, he put pt on more IV alsix and losartan -- Due to unknown time of onset cardioversion was not performed in the ER -- Patient did have episodes of tachycardia with activity on tele, was placed on PO Metoprolol which seemed to control his rate better -- TSH T4, a couple in the a.m. WNL -- Echo does show some right ventricular strain -- CTA PE protocol: no PE -- Telemetry monitoring -- Lipid panel, A1c and ordered A1C 6.7 -- PT is placed on heparin drip to bridge to coumadin -- INR is still 1.04 -- Increase metoprolol to 37.5 mg twice a day on 05/07 to better control rate Hypertension, chronic, active -- Continue home medications -- Metorprolol Tartrate 37.5 mg PO BID -- Cardiology put him on losartan 50 mg diabetes, chronic, active -- Low sliding scale -- Before meals at bedtime checks -- A1c is ordered 6.7 -- We will restart metformin has it has been more than 2 days since his PE protocol CT urine dribbling, concern for retention, present on admission: ruled out -- This may be due to constipation versus large abdominal girth, patient denies constipation -- Urine output review showed that bladder scan did not show any retention, urinary. Inaccurate records because patient is not always collecting the urine. -- Urinalysis with reflex culture: negative for infection -- Tamsulosin was re-reviewed and discontinued (nursing confirmed that pt had no residual on bladder scan) chronic low back pain, active -- This appears to be also because the patient's morbid obesity. -- We will give guidance on how to connect with the bariatric surgery as he expressed interest in pursuing it -- Tylenol, tramadol for pain control Acute Systolic Heart Failure present on admission, active -- BNP greater than 450 for his age range, cardiomegaly on chest x-ray, increased leg swelling -- IV Lasix 40 mg is given an admission, cardiology put him on every 8 hours IV Lasix 40 mg -- Accurate I and os, daily weights -- Echocardiogram in a.m. to check ejection fraction "The left ventricle is mildly dilated. Left ventricular systolic function is low normal. The ejection fraction is estimated to be 50-55%. There has been no significant change since the previous study. The right ventricle is mild to moderately dilated. Right ventricular systolic function is mildly reduced. There has been no significant change since the previous study. The right atrium is mildly dilated. The ascending aorta is mildly enlarged." Chronic venous stasis active -- Compression stockings, DVT boots are ordered Pain Evaluation: Pain Controlled Resuscitation Status: CPR: Attempt Resuscitation Time spent 30 min Pain Evaluation: Adequate Pain Control VTE Mechanical Devices: Venous Foot Pump Resuscitation Status: CPR: Attempt Resuscitation Time spent 25 min Sarah Godinez DO May 07, 2017 17:31
[2017-05-08] VITALS (9 sets, daily range): BP systolic 113–164; BP diastolic 56–85; PULSE 64–86; RESP 20–24; O2SAT 92–96
--- NOTE | 2017-05-08 00:40 | NUR ---
FEBRILE New onset fever of 37.9 C, pt sweaty, pt denies feeling hot. No tylenol ordered. Will monitor for increase in temperature and pass onto day shift about new onset fever. Hourly rounding. Addendum: 05/08/17 at 0259 by ARACELI LLANES RN Recheck at 0230 was 36.7 C
[2017-05-08 03:34] LABS: INR 1.05 ratio
[2017-05-08] MEDS: Heparin 5,000 Unit/mL Inj IVPUSH PRN ×3 (03:47→19:55)
[2017-05-08] MEDS: Heparin 25K Unit/500mL 0.45 NS 25,000 UNIT in IV Premix 1 EACH IV SCH (03:47)
[2017-05-08] MEDS: Furosemide 10 mg/mL 2 mL Inj IVPUSH SCH ×2 (07:46→16:38)
[2017-05-08] MEDS: Insulin LISPRO 300 Unit/3 mL Inj SUBQ SCH ×4 (07:56→21:46)
--- NOTE | 2017-05-08 10:19 | PCM.PHAPRO ---
Progress Pulmonary care consultation Cameron Yadav PGY3 and Quality Control Dr. Caceres Reason for consultation: Hypercapnia in the setting of morbid obesity. WARFARIN NEW START INDICATION: NEW A.FIB GOAL INR: 2-3 no INR today Date May 06-May 07-May 08-Apr INR 1.05 1.04 1.04 INR change -0.01 Warf Dose 5MG 5 10 5 A/P: * warfarn new start requires 7-10 days to become therapeutic * 5mg daily is recommended regimen for new starts * INR ordered for tomorrow, will wait and see tomorrow's INR * options for discharge: send home on lovenox 1mg/kg q12h and warfarin 5mg daily to be followed closely by [facility] Dasha Gifford Pharm.D May 08, 2017 10:16
--- NOTE | 2017-05-08 14:00 | NUR ---
Social Work Note - Continued D/C planning TETRYL WRINGER OPERATOR spoke with Kaye - Lena Neeta [phone]. Pulmonology MD is ordering a Trilogy machine for home. Kaye will work on the insurance authorization on Wednesday as insurance is closed this weekend. Per Multidisciplinary rounds, Pt is not stable for d/c - awaiting therapeutic INR and will likely remain in the hospital until Wednesday or Wednesday. Plan: home with family - RT working on Trilogy for home. CIARA Acosta
--- NOTE | 2017-05-08 17:06 | NUR ---
Sleep/Bipap: Patient had two 4-5 second heart pauses while he was in deep sleep per Sanding Machine [employer]. While observing patient as he slept patient was noticeably aponic while he was in deep sleep without using the Bi Pap machine. Placed Bi Pap machine on patient and there was a noticeable improvement in his breathing and sleep patterns. Patient appeared to be noticeably more comfortable and breathing more regular and easy with the Bi Pap machine on.
--- NOTE | 2017-05-08 18:41 | PROG NOTE ---
[address] [address] PROGRESS NOTE PATIENT: PENNY RAE : 1985 MR#: [id number] ADMIT: 05/04/2017 JOB ID: [id number] DATE: 05/08/2017 PROBLEM: 1. Obesity hypoventilation syndrome. 2. Morbid obesity. SUBJECTIVE: Called emergently as patient does not have Trilogy setup completed and is threatening to go home. Discussed the situation with the patient utilizing the remote aerial photograph interpreter. He is very concerned about bills. States we are taking too long to work him up and just keeping him in the hospital too long. Other problem, is his anticoagulation is quite subtherapeutic. OBJECTIVE: Temperature 36.6, pulse 73, respiratory rate 24, blood pressure 133/85. O2 sat on room air is 93%. Awake, alert. Chest is clear with fairly good breath sounds bilaterally. I had a long discussion regarding his BPAP setup. Apparently has not been signed. Contacted Respiratory Therapy emergently. They explored the issue. Apparently, the Trilogy cannot be approved by the insurance company until Wednesday. In addition, I was not contacted regarding signing the paperwork. That was signed at the patient's bedside. Discussed the situation with the patient. Explained the difficulties. Apologized for the delay and slowness of our apparent actions. Explained we have no control over the insurance companies and that his anticoagulation was proceeding slower than we expected. He understandably is focused on his bills. After a prolonged discussion with the aerial photograph interpreter, we decided that he would stay the night, and we would try to make arrangements tomorrow. Spoke with Respiratory Therapy about what we can do about getting him a BPAP machine for Wednesday with evaluation for his insurance eligibility Wednesday. We will see what we can do and try to accommodate his needs. Apologized profusely. Explained how sorry we were. Patient appeared to accept apologies but remained rather angry throughout most of our interaction, getting a little more understanding as time went by. PLAN: 1. Arrange with Respiratory Therapy to contact the Trilogy people regarding BPAP setup. 2. Spent well over an hour intervening in the patient's complaints this evening.
[2017-05-09 00:12] VITALS: BP 137/63; PULSE 65; RESP 20; O2SAT 96
--- NOTE | 2017-05-09 00:22 | PCM.PNMED ---
Subjective Date of Service May 08, 2017 Subjective Patient is wanting to leave the hospital today AMA, because he is worried that his bills may have to be paid and they are getting higher. I had a detailed discussion with patient and to aspects of his hospital admission the fact that he still requires inpatient bridging in the absence of any other options to switch him to another oral novel anticoagulants. I also discussed the possibility of risk of if he decides to go home without the BiPAP and also without proper anticoagulation. I called Dr. palma who kindly came and visited with the patient spent some time explaining to him the risks and benefits and patient agreed to stay overnight to wait for the BiPAP machine he says that he will take a pill at home for Coumadin Exam Vital Signs Vital Sign - Last Date Time Temp Pulse Resp B/P Pulse Ox O2 Delivery O2 Flow Rate FiO2 05/08/17 08:54 36.7 68 20 125/78 94 Room Air 05/08/17 05:44 2.00 Intake and Output 05/07/17 05/07/17 05/08/17 Cumulative From/Thru 15:00 23:00 07:00 05/04/17 13:44 - 05/08/17 05:45 Intake Total 1759 ml 1283 ml 7219 ml Output Total 900 ml 2300 ml 6550 ml Balance 859 ml -1017 ml 669 ml Intake Oral 900 ml 800 ml 5097 ml IV Total 859 ml 483 ml 2122 ml Output Urine Total 900 ml 2300 ml 6550 ml # Voids 7 # Bowel Movements 0 1 IVs and Medications Medications Reviewed: Medications were reviewed in detail Lab and Diagnostics Result Diagram: 05/07/17 0613 05/08/17 0235 X-Rays, CTs and MRIs CXR 05/04 IMPRESSION: Cardiomegaly, without acute cardiopulmonary disease. Cardiac Echo Impressions Echocardiogram Report The left ventricle is mildly dilated. Left ventricular systolic function is low normal. The ejection fraction is estimated to be 50-55%. There has been no significant change since the previous study. There are no obvious focal wall motion abnormalities noted but poor endocardial definition reduces the sensitivity for the detection of such. The E/E' ratio is moderately increased, suggesting possible increased filling pressures. The right ventricle is mild to moderately dilated. Right ventricular systolic function is mildly reduced. There has been no significant change since the previous study. Pulmonary artery pressures cannot be estimated because of the lack of a measurable TR jet velocity. The left atrial size is normal. The right atrium is mildly dilated. The ascending aorta is mildly enlarged. Reading Physician:PM Assessment & Plan This is a morbidly obese 72-year-old male with past medical history hypertension, diabetes, morbid obesity presenting today with vague complaints of leg swelling, pain and ankle swelling, pain, low back pain found to be in atrial flutter rate controlled in the ER #Dyspnea due to Obesity hypoventilation and Aflutter --Patient is not on oxygen on 05/06, more alert and oriented --ABGs were ordered as patient does have hypercapnia. Monitor oxygenation carefully, avoiding medications that could depress respiration --PE protocol CT is ordered, metformin is held 05/04: Neg for PE --ACS ruled out: Slight elev in troponin attributed to aflutter. -- Patient Experience Coordinator consulted, Dr. Harris has seen the patient. They recommend treating GERI, continuing anticoagulation. Dr. Harris will not cardiovert the patient if this is not controlled, as atrial flutter revealed likely return if sleep apnea continues to be a problem -- Dr. Caceres, exercise physiologist consulted, he requested the care of ABG on patient which was ordered: Worsened hypercapnia 56. -- Dr. Caceres recommends trilogy BIPAP consult for patient as his hypercapnia is worsening on CPAP. # Obstructive Sleep Apnea, poa acitve --Pt will definitely need an o/p sleep study, infact Dr. Beth Harris states his afib/aflutter will return even if he converted the rythm if he does not get treated for GERI --Patient is now using CPAP learning to tolerate it better --Dr. Skinner exercise physiologist consulted, he requested the care of ABG on patient which was ordered: Worsened hypercapnia 56 --Dr. Caceres recommends trilogy BIPAP consult for patient. # Atrial flutter, present on admission unknown onset -- Dr. Lacey from cardiology is consulted, tried contacting him without success on 05/04 -- Dr. Harris was contacted on 05/05 AM, an update was given. Recommends anticoagulation with warfarin. -- Dr. Harris has seen the patient on 05/06. Recommends GERI treatment, he put pt on more IV alsix and losartan -- Due to unknown time of onset cardioversion was not performed in the ER -- Patient did have episodes of tachycardia with activity on tele, was placed on PO Metoprolol which seemed to control his rate better -- TSH T4, a couple in the a.m. WNL -- Echo does show some right ventricular strain -- CTA PE protocol: no PE -- Telemetry monitoring -- Lipid panel, A1c and ordered A1C 6.7 -- PT is placed on heparin drip to bridge to coumadin -- INR is still 1.04 -- Increase metoprolol to 37.5 mg twice a day on 05/07 to better control rate, patient was noted to have 4-5 second pause during his sleep, staff noted him not to be wearing his CPAP will notify cardiology in the a.m. --Patient was given another 10 mg of Coumadin today after discussing case with pharmacy regarding stagnant INR levels Hypertension, chronic, active -- Continue home medications -- Metorprolol Tartrate 37.5 mg PO BID -- Cardiology put him on losartan 50 mg diabetes, chronic, active -- Low sliding scale -- Before meals at bedtime checks -- A1c is ordered 6.7 -- We will restart metformin has it has been more than 2 days since his PE protocol CT urine dribbling, concern for retention, present on admission: ruled out -- This may be due to constipation versus large abdominal girth, patient denies constipation -- Urine output review showed that bladder scan did not show any retention, urinary. Inaccurate records because patient is not always collecting the urine. -- Urinalysis with reflex culture: negative for infection -- Tamsulosin was re-reviewed and discontinued (nursing confirmed that pt had no residual on bladder scan) chronic low back pain, active -- This appears to be also because the patient's morbid obesity. -- We will give guidance on how to connect with the bariatric surgery as he expressed interest in pursuing it -- Tylenol, tramadol for pain control Acute Systolic Heart Failure present on admission, active -- BNP greater than 450 for his age range, cardiomegaly on chest x-ray, increased leg swelling -- IV Lasix 40 mg is given an admission, cardiology put him on every 8 hours IV Lasix 40 mg -- Accurate I and os, daily weights -- Echocardiogram in a.m. to check ejection fraction "The left ventricle is mildly dilated. Left ventricular systolic function is low normal. The ejection fraction is estimated to be 50-55%. There has been no significant change since the previous study. The right ventricle is mild to moderately dilated. Right ventricular systolic function is mildly reduced. There has been no significant change since the previous study. The right atrium is mildly dilated. The ascending aorta is mildly enlarged." -- Continue metoprolol, scale back IV lasix Chronic venous stasis active -- Compression stockings, DVT boots are ordered Pain Evaluation: Pain Controlled Resuscitation Status: CPR: Attempt Resuscitation Time spent 30 min Pain Evaluation: Adequate Pain Control VTE Mechanical Devices: Intermittant Pneumatic CD, Anti-Embolic stockings Resuscitation Status: CPR: Attempt Resuscitation Time spent 25 minutes Sarah Godinez DO May 08, 2017 10:07
[2017-05-09] MEDS: Heparin 25K Unit/500mL 0.45 NS 25,000 UNIT in IV Premix 1 EACH IV SCH (02:22)
[2017-05-09 02:38] LABS: INR 1.06 ratio
--- NOTE | 2017-05-09 03:36 | NUR ---
Heparin drip/Reported blood in stool: Heparin drip continues to be increased through the night, PTT not in goal range. GATE ATTENDANT reported pt had a BM in the toilet and there was visual blood in stool, toilet was flushed before guaiac could be obtained. Night hospitalist made aware of blood in stool, last PTT just below therapeutic range, at 59, continue to follow heparin drip protocol and increase rate. Heparin is currently at 2275 units/hour. Next PTT will be at 0745. Hat placed in toilet so a guaiac can be sent from the next BM.
[2017-05-09 04:33] VITALS: BP 125/80; PULSE 89; RESP 18; O2SAT 98
[2017-05-09 05:39] VITALS: PULSE 86
--- NOTE | 2017-05-09 07:51 | PCM.PHAPRO ---
Progress Pulmonary care consultation Cameron Yadav PGY3 and Melt Room Operator Dr. Caceres Reason for consultation: Hypercapnia in the setting of morbid obesity. Date May 06-May 07-May 08-May 09-Apr INR 1.05 1.04 1.04 1.05 1.06 INR change -0.01 0.01 0.01 Warf Dose 5MG 5 10 10 10 Mark Lagos Pharm.D May 09, 2017 07:51
[2017-05-09] MEDS: Insulin LISPRO 300 Unit/3 mL Inj SUBQ SCH (08:00)
[2017-05-09] MEDS ORDERED: Furosemide 10 mg/mL 4 mL Inj IVPUSH SCH (08:30)
[2017-05-09] MEDS ORDERED: NITR0.4T SL ×2 (09:13→09:14)
[2017-05-09] MEDS ORDERED: FURO40TA4 PO (09:13)
[2017-05-09] MEDS ORDERED: LOSA25TA2 PO (09:13)
[2017-05-09] MEDS ORDERED: METO25TA6 PO (09:13)
[2017-05-09] MEDS ORDERED: WARF7.5T4 PO ×2 (09:14→09:35)
[2017-05-09 09:43] VITALS: BP 139/83; PULSE 76; RESP 20; O2SAT 93
--- NOTE | 2017-05-09 11:13 | NUR ---
Patient Left AMA: Patient left AMA at 1101. Patient signed AMA form and was warned of the risks involved with leaving the hospital AMA before his medical treatment is completed.Patient received the Trilogy machine and was trained by RT how to use it before he left the hospital. Hospitalist wrote scripts for blood pressure med Coumadin,labs ect at discharge. The meds were reviewed with him re/ his next doses to be taken. Patient was brought to the hospital lobby in a wheelchair by nursing staff member and he was driven home by his . Patient received all of his personal belongings . Patient had nothing in the [facility] or pharmacy.
--- NOTE | 2017-05-09 23:54 | PCM.DC.MED ---
Discharge Summary Date of Service May 09, 2017 Dates of Hospitalization Date of Hospital Admission May 04, 2017 at 17:42 Date of Discharge: May 08, 2017 Providers: Admitting Physician: Sarah Jewell DO Primary Care Physician: Lindsey Khanna-Nat Hawthorne Attending Physician: Sarah Jewell DO Diagnosis at Time of Discharge Diagnosis at Time of Discharge Patient left AMA Consultations Cardiology, pulmonology, PTOT Procedures XRay, CTs & MRIs CXR 05/04 IMPRESSION: Cardiomegaly, without acute cardiopulmonary disease. Cardiac Echo Impression Echocardiogram Report The left ventricle is mildly dilated. Left ventricular systolic function is low normal. The ejection fraction is estimated to be 50-55%. There has been no significant change since the previous study. There are no obvious focal wall motion abnormalities noted but poor endocardial definition reduces the sensitivity for the detection of such. The E/E' ratio is moderately increased, suggesting possible increased filling pressures. The right ventricle is mild to moderately dilated. Right ventricular systolic function is mildly reduced. There has been no significant change since the previous study. Pulmonary artery pressures cannot be estimated because of the lack of a measurable TR jet velocity. The left atrial size is normal. The right atrium is mildly dilated. The ascending aorta is mildly enlarged. Reading Physician:PM Brief History Patient is a 32-year-old male with past medical history significant for super morbid obesity, hypertension, recently diagnosed diabetes type II, and chronic back and knee pain presented to the ED 3 days ago with increasing generalized weakness and increasing bilateral lower leg swelling. Per patient, he complains of worsening shortness of breath and coughing over the past 4 weeks. Evaluation at [facility] recommended the patient be admitted to the hospital for probable CHF. He has shortness of breath for the past 1 year, worst when he lies flat, sleeps with 2 pillows. Patient admits to using intermittent O2 3 L at home. Coughing is new, also worsening when he lies down. Patient has significant weight gain within the past week in addition to increasing leg swellings. Patient states limited mobility, can walk 10-15 minutes, avoid stairs due to shortness of breath. Patient to fatigue from most of the days. She denies any fevers chills night sweats, chest pain, or lightheaded and dizziness. 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 Today, patient reports feeling significantly better secondary to better sleep on CPAP. Hospital Course This is a morbidly obese 72-year-old male with past medical history hypertension, diabetes, morbid obesity presenting today with vague complaints of leg swelling, pain and ankle swelling, pain, low back pain found to be in atrial flutter rate controlled in the ER #Dyspnea due to Obesity hypoventilation and Aflutter --Patient is not on oxygen on 05/06, more alert and oriented --ABGs were ordered as patient does have hypercapnia. Monitor oxygenation carefully, avoiding medications that could depress respiration --PE protocol CT is ordered, metformin is held 05/04: Neg for PE --ACS ruled out: Slight elev in troponin attributed to aflutter. -- Focused Factory Manager consulted, Dr. Harris has seen the patient. They recommend treating GERI, continuing anticoagulation. Dr. Harris will not cardiovert the patient if this is not controlled, as atrial flutter revealed likely return if sleep apnea continues to be a problem -- Dr. Caceres, dried fruit washer consulted, he requested the care of ABG on patient which was ordered: Worsened hypercapnia 56. -- Dr. Caceres recommends trilogy BIPAP consult for patient as his hypercapnia is worsening on CPAP. -- Patient expressed his desire to go home on 05/08, both Dr. Navas and I counseled patient on the detriments of leaving at this point during his treatment. The patient is worried about her being able to pay his bills, and wanted to leave AMA. We asked him to wait at least a week and get him his BiPAP trial box, and he agreed. -- On 05/09, I once again discussed risks of patient leaving at this point in his treatment, risks include but not limited to increased risk of clotting and PE, uncontrolled A flutter. Patient received a trial BiPAP set, we wrote him prescription for losartan, Lasix, metoprolol, Coumadin and follow-up lab work. Patient left AMA. # Obstructive Sleep Apnea, poa acitve --Pt will definitely need an o/p sleep study, infact Dr. Beth Harris states his afib/aflutter will return even if he converted the rythm if he does not get treated for GERI --Patient is now using CPAP learning to tolerate it better --Dr. Skinner dried fruit washer consulted, he requested the care of ABG on patient which was ordered: Worsened hypercapnia 56 --Dr. Caceres recommends trilogy BIPAP consult for patient. # Atrial flutter, present on admission unknown onset -- Dr. Lacey from cardiology is consulted, tried contacting him without success on 05/04 -- Dr. Harris was contacted on 05/05 AM, an update was given. Recommends anticoagulation with warfarin. -- Dr. Harris has seen the patient on 05/06. Recommends GERI treatment, he put pt on more IV alsix and losartan -- Due to unknown time of onset cardioversion was not performed in the ER -- Patient did have episodes of tachycardia with activity on tele, was placed on PO Metoprolol which seemed to control his rate better -- TSH T4, a couple in the a.m. WNL -- Echo does show some right ventricular strain -- CTA PE protocol: no PE -- Telemetry monitoring -- Lipid panel, A1c and ordered A1C 6.7 -- PT is placed on heparin drip to bridge to coumadin -- INR is still 1.04 -- Increase metoprolol to 37.5 mg twice a day on 05/07 to better control rate, patient was noted to have 4-5 second pause during his sleep, staff noted him not to be wearing his CPAP will notify cardiology in the a.m. -- On 05/08 Patient was given another 10 mg of Coumadin today after discussing case with pharmacy regarding stagnant INR levels -- On 05/09, patient is given prescription for 2 more doses 7.5 mg, follow-up INR in 1-2 days Hypertension, chronic, active -- Continue home medications -- Metorprolol Tartrate 37.5 mg PO BID -- Cardiology put him on losartan 50 mg diabetes, chronic, active -- Low sliding scale -- Before meals at bedtime checks -- A1c is ordered 6.7 -- We will restart metformin has it has been more than 2 days since his PE protocol CT urine dribbling, concern for retention, present on admission: ruled out -- This may be due to constipation versus large abdominal girth, patient denies constipation -- Urine output review showed that bladder scan did not show any retention, urinary. Inaccurate records because patient is not always collecting the urine. -- Urinalysis with reflex culture: negative for infection -- Tamsulosin was re-reviewed and discontinued (nursing confirmed that pt had no residual on bladder scan) chronic low back pain, active -- This appears to be also because the patient's morbid obesity. -- We will give guidance on how to connect with the bariatric surgery as he expressed interest in pursuing it -- Tylenol, tramadol for pain control Acute Systolic Heart Failure present on admission, active -- BNP greater than 450 for his age range, cardiomegaly on chest x-ray, increased leg swelling -- IV Lasix 40 mg is given an admission, cardiology put him on every 8 hours IV Lasix 40 mg -- Accurate I and os, daily weights -- Echocardiogram in a.m. to check ejection fraction -- Patient's home Lasix is increased to 40 mg twice a day "The left ventricle is mildly dilated. Left ventricular systolic function is low normal. The ejection fraction is estimated to be 50-55%. There has been no significant change since the previous study. The right ventricle is mild to moderately dilated. Right ventricular systolic function is mildly reduced. There has been no significant change since the previous study. The right atrium is mildly dilated. The ascending aorta is mildly enlarged." -- Continue metoprolol, scale back IV lasix Chronic venous stasis active -- Compression stockings, DVT boots are ordered Pain Evaluation: Pain Controlled Resuscitation Status: CPR: Attempt Resuscitation Time spent 30 min Exam Vital Signs (Last) Date Time Temp Pulse Resp B/P Pulse Ox O2 Delivery O2 Flow Rate FiO2 05/09/17 05:39 86 05/09/17 04:33 36.6 18 125/80 98 Room Air 05/08/17 05:44 2.00 Test 05/04/17 15:59 05/04/17 21:41 05/05/17 04:10 05/07/17 06:13 Hemoglobin A1c 6.6% (4.8-5.6) Magnesium Level 2.1mg/dL (1.6-2.6) Pro-B-Type Natriuretic Peptide 572.4pg/mL (0-86) Urine Color Straw (YELLOW) Urine Appearance Clear (CLEAR,HAZY) Urine pH 6.5 (5.0-8.0) Urine Specific [place] 1.004 (1.003-1.035) Urine Protein Negativemg/dL (NEG,TRACE) Urine Glucose (UA) Negativemg/dL (NEGATIVE) Urine Ketones Negativemg/dL (NEGATIVE) Urine Occult Blood Negative (NEGATIVE) Urine Nitrite Negative (NEGATIVE) Urine Bilirubin Negative (NEGATIVE) Urine Urobilinogen Normalmg/dL (NORMAL) Urine Leukocyte Esterase Negative (NEGATIVE) Urine RBC 0-2/hpf (0-2) Urine WBC 0-5/hpf (0-5) Urine Epithelial Cells None/hpf (NONE-MOD) Urine Crystals None seen (NONE SEEN) Urine Bacteria None/hpf (NONE-FEW) Urine Hyaline Casts None/lpf (NONE) Urine Granular Casts None seen (NONE SEEN) Urine Waxy Casts None seen (NONE SEEN) Urine Red Blood Cell Casts None seen (NONE SEEN) Urine White Blood Cell Casts None seen (NONE SEEN) Urine Mucus None seen (None Seen) Urine Trichomonas None seen (NONE SEEN) Urine Yeast None (NONE SEEN) Urinalysis Comment None Urine Culture Reflexed Not indicated White Blood Count 9.2th/mm3 (3.8-10.1) Red Blood Count 4.87mil/mm3 (4.40-5.80) Mean Corpuscular Volume 88.3fL (81-100) Mean Corpuscular Hemoglobin 27.5pg (27.0-35.0) Mean Corpuscular Hemoglobin Concent 31.2% (32.0-37.0) Red Cell Distribution Width 15.1% (12.3-15.4) Platelet Count 258bil/L (150-400) Neutrophils (%) (Auto) 66.3% (40-74) Lymphocytes (%) (Auto) 14.1% (14-46) Monocytes (%) (Auto) 13.1% (4-12) Eosinophils (%) (Auto) 6.0% (0-5) Basophils (%) (Auto) 0.2% (0-3) Total Creatine Kinase 137U/L (21-232) Creatine Kinase MB 2.7ng/mL (0.0-10.4) Creatine Kinase MB % % (0.0-5.0) Troponin T 0.010ug/L (0.0-0.011) Triglycerides Level 126mg/dL (0-149) Cholesterol Level 180mg/dL (100-199) LDL Cholesterol, Calculated 96.800mg/dL (0-99) VLDL Cholesterol 25.200mg/dL HDL Cholesterol 58mg/dL (>39) Cholesterol/HDL Ratio 3.10 (0.0-4.4) Thyroid Stimulating Hormone (TSH) 2.610uIU/mL (0.450-4.500) Free Thyroxine 1.15ng/dL (0.82-1.77) Hemoglobin 14.0g/dL (13.8-17.2) Hematocrit 44.5% (41.0-50.0) Total Bilirubin 0.5mg/dL (0.0-1.2) Aspartate Amino Transf (AST/SGOT) 98U/L (0-50) Alanine Aminotransferase (ALT/SGPT) 96U/L (0-44) Alkaline Phosphatase 69U/L (25-150) Total Protein 7.4g/dL (6.4-8.4) Albumin 4.2g/dL (3.4-5.0) Test 05/09/17 02:00 05/09/17 07:45 Prothrombin Time 11.4sec (8.1-12.5) Prothromb Time International Ratio 1.06ratio Sodium Level 138mEq/L (134-144) Potassium Level 4.0mEq/L (3.5-5.2) Chloride Level 97mEq/L (97-108) Carbon Dioxide Level 27mmol/L (18-29) Blood Urea Nitrogen 19mg/dL (6-20) Creatinine 0.72mg/dL (0.76-1.27) Estimat Glomerular Filtration Rate 134mL/min (>59) Glucose Level 111mg/dL (60-99) Calcium Level 9.4mg/dL (8.5-10.1) Activated Partial Thromboplast Time 50.4sec (22.8-33.0) Discharge Medications Discharge Medications Furosemide (Furosemide) 40 Mg Tablet 40 MG PO BID Prescribed by: SARAH JEWELL DO Losartan Potassium (Cozaar) 25 Mg Tablet 50 MG PO BID Prescribed by: SARAH JEWELL DO Metformin (Metformin) 500 Mg Tablet 500 MG PO BID (Reported) Metoprolol Tartrate (Metoprolol Tartrate) 25 Mg Tablet 37.5 MG PO BID Prescribed by: SARAH JEWELL DO Warfarin Sodium (Warfarin Sodium) 7.5 Mg Tablet 7.5 MG PO DAILY Prescribed by: SARAH A JEWELL, DO As needed Nitroglycerin SL (Nitrostat) 0.4 Mg Tab.subl 0.4 MG SL Q5MIN PRN PRN For Chest Pain Prescribed by: DO Herbert LAND Aruna DO May 09, 2017 09:15
== END 2017-05-09 11:00 | disposition left against medical advice (07) | DRG 201 ==
LOC: SED 13:40 → MPC 17:42 → OBSVTOIN 17:42 → MPC 18:31
PROVIDERS: ADMIT Family Medicine; ATTEND Family Medicine
PROC: 4A033R1 Measurement of Arterial Saturation, Peripheral, Percutaneous Approach (ICD-10-PCS; principal; 2017-05-04)
DX: I48.92 Unspecified atrial flutter (principal); I50.21 Acute systolic (congestive) heart failure; E66.2 Morbid (severe) obesity with alveolar hypoventilation; Z68.43 Body mass index [BMI] 50.0-59.9, adult; I10 Essential (primary) hypertension; E11.9 Type 2 diabetes mellitus without complications; F17.210 Nicotine dependence, cigarettes, uncomplicated; G89.29 Other chronic pain; Z79.84 Long term (current) use of oral hypoglycemic drugs